=== PATIENT | male | born 1955 | race African-American/Black ===

== ENCOUNTER 2016-12-14 08:34 | Inpatient (IN) | payer BC, OTHER ==
[2016-12-14] MEDS ORDERED: ASPIRIN 81 MG TABLET, CHEWABLE PO ONE (08:55)
[2016-12-14] MEDS ORDERED: FUROSEMIDE INJ/PF 40 MG/4 ML SDV IV ONE (08:55)
--- NOTE | 2016-12-14 09:02 | ER Document Report ---
ED General - General Chief Complaint: Swelling Stated Complaint: LEG SWELLING Time Seen by Provider: 12/14/16 08:55 Mode of Arrival: Ambulatory Information source: Patient Notes: 61-year-old male who is supposed be on metoprolol but has not been taking his medication for approximately 1 month presents with complaints of shortness of breath swelling in his extremities. Patient is noted to be hypertensive on arrival 250/148 with pitting edema of the lower extremities testicles and swelling of the abdomen with shortness of breath. Patient notes symptoms started over the past 2-3 days TRAVEL OUTSIDE OF THE [place] IN LAST 30 DAYS: No - HPI Onset: Other - 2-3 days Onset/Duration: Persistent, Worse Quality of pain: No pain Severity: Severe Pain Level: Denies Associated symptoms: Leg swelling, Shortness of breath, Other Exacerbated by: Supine Relieved by: Denies Similar symptoms previously: No Recently seen / treated by doctor: No - Related Data Allergies/Adverse Reactions: No Known Allergies Allergy (Unverified 12/14/16 08:42) Home Medications: Current Home Medications Aspirin 81 mg PO DAILY 12/14/16 [History] Naproxen Sodium [Aleve] 220 mg PO PRN PRN 12/14/16 [History] Past Medical History - Social History Smoking Status: Never Smoker Cigarette use (# per day): No Chew tobacco use (# tins/day): No Smoking Education Provided: No Family History: Reviewed & Not Pertinent Renal/ Medical History: Denies: Hx Peritoneal Dialysis Review of Systems - Review of Systems Notes: REVIEW OF SYSTEMS: CONSTITUTIONAL : Denies fever, chills, or sweats. Denies recent illness. EENT: Denies eye, ear, throat, or mouth pain or symptoms. Denies nasal or sinus congestion or discharge. Denies throat, tongue, or mouth swelling or difficulty swallowing. CARDIOVASCULAR: Denies chest pain. Denies palpitations or racing or irregular heart beat. Denies ankle edema. RESPIRATORY: Admits to shortness of breath GASTROINTESTINAL: Denies abdominal pain or distention. Denies nausea, vomiting , or diarrhea. Denies blood in vomitus, stools, or per rectum. Denies black, tarry stools. Denies constipation. GENITOURINARY: Denies difficulty urinating, painful urination, burning, frequency, blood in urine, or discharge. MUSCULOSKELETAL: Admits to swelling of extremities SKIN: Denies rash, lesions or sores. HEMATOLOGIC : Denies easy bruising or bleeding. LYMPHATIC: Denies swollen, enlarged glands. NEUROLOGICAL: Denies confusion or altered mental status. Denies passing out or loss of consciousness. Denies dizziness or lightheadedness. Denies headache. Denies weakness or paralysis or loss of use of either side. Denies problems with gait or speech. Denies sensory loss, numbness, or tingling. Denies seizures. PSYCHIATRIC: Denies anxiety or stress. Denies depression, suicidal ideation, or homicidal ideation. ALL OTHER SYSTEMS REVIEWED AND NEGATIVE. Dictation was performed using [email or web address] voice recognition software PHYSICAL EXAMINATION: GENERAL: Overall edematous appearing male HEAD: Atraumatic, normocephalic. EYES: Pupils equal round and reactive to light, extraocular movements intact, sclera anicteric, conjunctiva are normal. ENT: Nares patent, oropharynx clear without exudates. Moist mucous membranes. NECK: Normal range of motion, supple without lymphadenopathy LUNGS: Rhonchi with wheezing all throughout HEART: Regular rate and rhythm without murmurs ABDOMEN: Mildly distended abdomen scrotum is quite edematous Musculoskeletal: +3 pitting edema bilateral lower extremities NEUROLOGICAL: Cranial nerves grossly intact. Normal speech, normal gait. Normal sensory, motor exams PSYCH: Normal mood, normal affect. SKIN: Edematous Physical Exam - Vital signs Vitals: Temp Pulse Resp BP Pulse Ox 97.7 F 117 H 20 250/148 H 97 12/14/16 08:44 12/14/16 08:44 12/14/16 08:44 12/14/16 08:44 12/14/16 08:44 Course - Re-evaluation Re-evalutation: 12/14/16 09:02 Patient is having probable CHF exacerbation, versus new onset CHF. Lasix has been ordered lab work imaging pending at this time 12/14/16 10:09 After Lasix was given patient had output of 400 cc states he is breathing much better, I did speak with the hospitalist noted at the pressure is now 213/100, he requests a nitroglycerin drip and will admit to the ICU - Vital Signs Vital signs: Temp Pulse Resp BP Pulse Ox 97.7 F 117 H 20 240/134 H 99 12/14/16 08:44 12/14/16 08:44 12/14/16 09:22 07/30/17 09:01 12/14/16 09:01 - Laboratory Result Diagrams: 12/14/16 09:08 12/14/16 09:08 Laboratory results interpreted by me: 12/14/16 12/14/16 12/14/16 09:08 09:08 09:08 RDW 17.4 H Lymphocytes % 7.8 L BUN 29 H Creatinine 1.30 H Est GFR (Non-Af Amer) 56 L Glucose 148 H Total Bilirubin 1.6 H Direct Bilirubin 1.2 H Alkaline Phosphatase 224 H NT-Pro-B Natriuret Pep [id number] H - Diagnostic Test Radiology reviewed: Image reviewed, Reports reviewed - EKG Interpretation by Me EKG shows normal: Sinus rhythm, [place], Intervals, QRS Complexes Voltage: Consistant with LVH Critical Care Note - Critical Care Note Total time excluding time spent on procedures (mins): 40 Comments: minutes of critical care time spent in direct contact evaluating and reevaluating the patient, treating symptoms, reviewing labs and studies and speaking with family and consultants excluding any procedures Discharge - Discharge Clinical Impression: Hypertensive emergency, Peripheral edema Congestive heart failure Qualifiers: Congestive heart failure type: combined Congestive heart failure chronicity: acute Qualified Code(s): I50.41 - Acute combined systolic (congestive) and diastolic (congestive) heart failure Condition: Serious Disposition: ADMITTED INPATIENT Admitting Provider: Hospitalist Unit Admitted: ICU
[2016-12-14 09:33] LABS: ABSOLUTE BASOPHILS # (AUTO) 0.1 10^3/uL (0.0-0.2); ABSOLUTE EOSINOPHILS # (AUTO) 0.1 10^3/uL (0.0-0.6); ABSOLUTE LYMPHOCYTES (AUTO) 0.6 10^3/uL (0.5-4.7); ABSOLUTE MONOCYTES (AUTO) 0.9 10^3/uL (0.1-1.4); ABSOLUTE NEUT (AUTO) 5.7 10^3/uL (1.7-8.2); BASOPHILS % (AUTO) 0.8 % (0-2); HEMATOCRIT 41.5 % (37.9-51.0); HEMOGLOBIN 13.8 g/dL (13.5-17.0); HGB HCT DIFFERENCE -0.1; LYMPHOCYTES % (AUTO) 7.8 % (13-45); MEAN CORPUSCULAR HEMOGLOBIN 29.5 pg (27.0-33.4); MEAN CORPUSCULAR HGB CONC 33.3 g/dL (32.0-36.0); MEAN CORPUSCULAR VOLUME 89 fl (80-97); MONOCYTES % (AUTO) 11.8 % (3-13); RED BLOOD COUNT 4.68 10^6/uL (4.35-5.55); RED CELL DISTRIBUTION WIDTH 17.4 % (11.5-14.0); SEGMENTED NEUTROPHILS % (AUTO) 77.6 % (42-78); WHITE BLOOD COUNT 7.4 10^3/uL (4.0-10.5)
[2016-12-14 09:36] LABS: ALANINE AMINOTRANSFERASE 48 U/L (21-72); ALBUMIN 3.8 g/dL (3.5-5.0); ALKALINE PHOSPHATASE 224 U/L (38-126); ANION GAP 13 (5-19); ASPARTATE AMINO TRANSFERASE 50 U/L (17-59); BILIRUBIN,DIRECT 1.2 mg/dL (0.0-0.4); BILIRUBIN,TOTAL 1.6 mg/dL (0.2-1.3); BLOOD UREA NITROGEN 29 mg/dL (7-20); CALCIUM 9.5 mg/dL (8.4-10.2); CARBON DIOXIDE 24 mmol/L (22-30); CHLORIDE 102 mmol/L (98-107); CREATINE KINASE 118 U/L (55-170); GLUCOSE 148 mg/dL (75-110); POTASSIUM 3.7 mmol/L (3.6-5.0); SODIUM 138.6 mmol/L (137-145); TOTAL PROTEIN 7.2 g/dL (6.3-8.2)
[2016-12-14 09:47] LABS: CREATINE KINASE MB 2.48 ng/mL (<4.55)
--- NOTE | 2016-12-14 09:47 | RADIOLOGY REPORT (SQ) ---
EXAM DESCRIPTION: CHEST SINGLE VIEW COMPLETED DATE/TIME: 12/14/2016 9:25 am REASON FOR STUDY: edema COMPARISON: None. EXAM PARAMETERS: NUMBER OF VIEWS: One view. TECHNIQUE: Single frontal radiographic view of the chest acquired. RADIATION DOSE: NA LIMITATIONS: None. FINDINGS: LUNGS AND PLEURA: Patchy subsegmental airspace disease in the lower lungs. MEDIASTINUM AND HILAR STRUCTURES: No masses. HEART AND VASCULAR STRUCTURES: Cardiomegaly. Pulmonary vascular redistribution. BONES: No acute findings. HARDWARE: None in the chest. OTHER: No other significant finding. IMPRESSION: Congestive heart failure. TECHNICAL DOCUMENTATION: JOB ID: [id number]
[2016-12-14 09:52] LABS: TROPONIN I 0.049 ng/mL
[2016-12-14 10:06] LABS: VENOUS BLOOD BASE EXCESS 0.8 mmol/L; VENOUS BLOOD HCO3 26.4 mmol/L (20-32); VENOUS BLOOD PCO2 45.5 mmHg (35-63); VENOUS BLOOD PH 7.38 (7.30-7.42)
[2016-12-14] MEDS ORDERED: NITROGLYCERIN/D5W 250 ML IV PRN ×2 (10:09→10:52)
[2016-12-14] MEDS ORDERED: MAGNESIUM HYDROXIDE SUSP 30 ML UDCUP PO PRN (10:58)
[2016-12-14] MEDS ORDERED: ONDANSETRON HCL INJ/PF 4 MG/2 ML SDV IV PRN (10:58)
[2016-12-14] MEDS ORDERED: ACETAMINOPHEN 325 MG TABLET PO PRN (10:58)
[2016-12-14] MEDS ORDERED: LORAZEPAM INJ 2 MG/1 ML VIAL IV PRN (11:03)
--- NOTE | 2016-12-14 11:10 | EKG REPORT ---
SEVERITY:- ABNORMAL ECG - SINUS TACHYCARDIA PROBABLE LEFT ATRIAL ABNORMALITY PROBABLE LVH WITH SECONDARY REPOL ABNRM : Confirmed by: Sana Do MD 14-Dec-2016 11:09:48
[2016-12-14] MEDS ORDERED: AMLODIPINE BESYLATE 10 MG TABLET PO ONE (11:13)
[2016-12-14 11:17] LABS: PROTHROMBIN TIME 15.4 SEC (11.4-15.4)
[2016-12-14 11:18] LABS: PARTIAL THROMBOPLASTIN TIME 38.9 SEC (23.5-35.8)
[2016-12-14] MEDS ORDERED: DEXTROSE 50%-WATER 25 GM/50 ML DISP.SYRIN IV PRN ×2 (11:30)
[2016-12-14] MEDS ORDERED: GLUCAGON,HUMAN RECOMB 1 MG INJ IM PRN (11:30)
[2016-12-14] MEDS ORDERED: DEXTROSE 40% GEL 15 GM TUBE PO PRN ×2 (11:30)
--- NOTE | 2016-12-14 11:33 | PDOC H&P ---
History of Present Illness Admission Date/PCP: 12/14/16 10:24 RADHA LERMA MD Patient complains of: SWELLING AND SOA History of Present Illness: CHRISTIANO DOSHI is a 61 year old male presents from home at the insistence of his family for progressive swelling of his legs, worsening exertional dyspena, weight gain, orthopnea of >3pillows sleeping upright in recliner, abdominal bloating, cough with clear phlegm and exertional wheezing. He stopped going to the [facility] over a year ago, doesn't like them, nothing personal. 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 He denies chest pain, palpitations, n/v /d, PND, fevers/chills, recent travel, calf pain or symptoms of claudication. He notes weight gain of unknown amount and his shoes don't fit anymore due to the swelling. To his knowledge he's never had AMI, CHF, cardiac stress test or cath and isn't diabetic or have COPD in spite of at least 1/2 ppd for >30yrs but freely admits he doesn't go to the doctor for fear of these diagnoses. He admits to 1-2 beers daily but family pulled me aside to note at least 3-4 on weekdays and more on the weekend though they confirm no prior hx of withdrawal, seizures or treatment/rehab. eval in ED shows he is in mauro heart failure with markedly elevated BPs warranting inpatient ICU treatment and further evaluation. Past Medical History Cardiac Medical History: Reports: Hypertension Denies: Congestive Heart Failure, Myocardial Infarction Pulmonary Medical History: Reports: Chronic Obstructive Pulmonary Disease (COPD) Endocrine Medical History: Reports: None Renal/ Medical History: Reports: None GI Medical History: Reports: None Psychiatric Medical History: Denies: Alcohol Dependency Past Surgical History Past Surgical History: Reports: Orthopedic Surgery - right knee meniscus repair 1973 Social History Information Source: Patient Smoking Status: Current Every Day Smoker Cigarettes Packs Per Day: 0.5 Frequency of Alcohol Use: Heavy Hx Recreational Drug Use: No Hx Prescription Drug Abuse: No - Advance Directive Resuscitation Status: Full Code Family History Family History: Reviewed & Not Pertinent, DM. denies: CAD, Malignancy, Thyroid Disfunction Parental Family History Reviewed: Yes Children Family History Reviewed: Yes Sibling(s) Family History Reviewed.: Yes Medication/Allergy Home Medications: Aspirin 81 mg PO DAILY 12/14/16 Naproxen Sodium [Aleve] 220 mg PO PRN PRN 12/14/16 Allergies/Adverse Reactions: No Known Allergies Allergy (Unverified 12/14/16 08:42) Review of Systems All systems: reviewed and no additional remarkable complaints except as stated - all systems reviewed, see HPI, remaining systems negative Physical Exam Vital Signs: Temp Pulse Resp BP Pulse Ox 97.7 F 117 H 18 212/156 H 97 12/14/16 08:44 12/14/16 08:44 12/14/16 10:47 12/14/16 10:47 12/14/16 10:47 General appearance: PRESENT: no acute distress, obese, well-developed, well- nourished Head exam: PRESENT: atraumatic, normocephalic Eye exam: PRESENT: conjunctival injection, EOMI, PERRLA. ABSENT: nystagmus, scleral icterus Mouth exam: PRESENT: moist, neck supple Teeth exam: PRESENT: poor dentation Neck exam: PRESENT: full ROM, JVD - to angle of the jaw. ABSENT: carotid bruit , lymphadenopathy, meningismus, tenderness, thyromegaly Respiratory exam: PRESENT: crackles, rales, unlabored, wheezes - faint end exp with pops and squeaks. ABSENT: accessory muscle use Cardiovascular exam: PRESENT: RRR. ABSENT: diastolic murmur, systolic murmur Pulses: PRESENT: normal radial pulses, normal dorsalis pedis pul GI/Abdominal exam: PRESENT: distended, normal bowel sounds, soft. ABSENT: ascites - shifting dullness -no, guarding, organolmegaly - no tenderness over the liver edge on palpation up under the ribs, tenderness Gentrourinary exam: PRESENT: scrotal swelling, indwelling catheter - large volume clear light yellow urine Extremities exam: PRESENT: full ROM, +2 edema. ABSENT: calf tenderness, clubbing Musculoskeletal exam: PRESENT: ambulatory, full ROM Neurological exam: PRESENT: alert, awake, oriented to person, oriented to place , oriented to time, oriented to situation Psychiatric exam: PRESENT: appropriate affect, normal mood. ABSENT: homicidal ideation, suicidal ideation Focused psych exam: ABSENT: pressured speech, psychomotor agitation Skin exam: PRESENT: warm - moist. ABSENT: rash Results Laboratory Results: 12/14/16 09:08 12/14/16 09:08 MCV 89 fl (80-97) 12/14/16 09:08 MCH 29.5 pg (27.0-33.4) 12/14/16 09:08 MCHC 33.3 g/dL (32.0-36.0) 12/14/16 09:08 RDW 17.4 % (11.5-14.0) H 12/14/16 09:08 Seg Neutrophils % 77.6 % (42-78) 12/14/16 09:08 Lymphocytes % 7.8 % (13-45) L 12/14/16 09:08 Monocytes % 11.8 % (3-13) 12/14/16 09:08 Eosinophils % 2.0 % (0-6) 12/14/16 09:08 Basophils % 0.8 % (0-2) 12/14/16 09:08 Absolute Neutrophils 5.7 10^3/uL (1.7-8.2) 12/14/16 09:08 Absolute Lymphocytes 0.6 10^3/uL (0.5-4.7) 12/14/16 09:08 Absolute Monocytes 0.9 10^3/uL (0.1-1.4) 12/14/16 09:08 Absolute Eosinophils 0.1 10^3/uL (0.0-0.6) 12/14/16 09:08 Absolute Basophils 0.1 10^3/uL (0.0-0.2) 12/14/16 09:08 VBG pH 7.38 (7.30-7.42) 12/14/16 09:53 VBG pCO2 45.5 mmHg (35-63) 12/14/16 09:53 VBG HCO3 26.4 mmol/L (20-32) 12/14/16 09:53 VBG Base Excess 0.8 mmol/L 12/14/16 09:53 Chloride 102 mmol/L (98-107) 12/14/16 09:08 Carbon Dioxide 24 mmol/L (22-30) 12/14/16 09:08 Anion Gap 13 (5-19) 12/14/16 09:08 Est GFR ( Amer) > 60 (>60) 12/14/16 09:08 Est GFR (Non-Af Amer) 56 (>60) L 12/14/16 09:08 Glucose 148 mg/dL (75-110) H 12/14/16 09:08 Calcium 9.5 mg/dL (8.4-10.2) 12/14/16 09:08 Magnesium 1.8 mg/dL (1.6-2.3) 12/14/16 09:08 Total Bilirubin 1.6 mg/dL (0.2-1.3) H 12/14/16 09:08 AST 50 U/L (17-59) 12/14/16 09:08 ALT 48 U/L (21-72) 12/14/16 09:08 Alkaline Phosphatase 224 U/L (38-126) H 12/14/16 09:08 Total Protein 7.2 g/dL (6.3-8.2) 12/14/16 09:08 Albumin 3.8 g/dL (3.5-5.0) 12/14/16 09:08 12/14/16 12/14/16 09:08 09:08 Creatine Kinase 118 CK-MB (CK-2) 2.48 Troponin I 0.049 NT-Pro-B Natriuret Pep 43354 H EKG Comments: ecg shows TWI I, III, aVL, V5-6 with 0.5mm depression in V5-6; QTc 475 no old for comparison Impressions: Chest X-Ray 12/14/16 08:55 IMPRESSION: Congestive heart failure. Status: Image reviewed by me - agree with rads Assessment & Plan - Diagnosis (1) Hypertensive emergency Is this a current diagnosis for this admission?: YesPlan: with end organ damage of renal failure and heart failure; admit to ICU for titration of nitro gtt to goal SBP <140 and DBP <95. he is chest pain free. start low dose toprol but hold ACEi for now due to elevated Scr and need for diuresis. empiric ASA therapy as primary prophylaxis. (2) Acute systolic CHF (congestive heart failure), NYHA class 4 Is this a current diagnosis for this admission?: YesPlan: working diagnosis on basis of clinical exam and symptoms, possibly diastolic. admit to ICU for diuresis and careful monitoring of his renal function. given his response to IV lasix 60mg of >2L already will back off to 20mg IV bid and adjust based on his response and renal function. empiric KCL and ck Mg - monitor and replace lytes. trend Florian. consult dr langley for his evaluation. Hold ACEi for now until we determine where his renal function stabilizes. beta latasha and statin and ASA as noted. fluid restrict, strict I/Os, daily weights (3) EtOH dependence Qualifiers: Substance use status: uncomplicated Qualified Code(s): F10.20 - Alcohol dependence, uncomplicated Is this a current diagnosis for this admission?: YesPlan: empiric Thiamine and monitor for w/d symptoms; start CIWA at first sign of trouble (4) Tobacco dependence Is this a current diagnosis for this admission?: YesPlan: no nicotine replacement while his BP is so poorly controlled. cessation counseling fell on "deaf ears". (5) Noncompliance with medication regimen Is this a current diagnosis for this admission?: YesPlan: likely to blame for his presentation and current state of affairs (6) Abnormal ECG Is this a current diagnosis for this admission?: YesPlan: await cardio input, trend Florian; at some point when his BP and heart failure controlled, will need ischemia evaluation (7) CKD (chronic kidney disease) stage 2, GFR 60-89 ml/min Is this a current diagnosis for this admission?: YesPlan: no old labs for comparison, unclear his baseline. ck UA and us abd for medico renal disease. hold nephrotoxic meds where possible and monitor Scr daily while diuresing. may need nephro consult prior to discharge. (8) Hyperglycemia Is this a current diagnosis for this admission?: YesPlan: family hx of DM, will ck A1c, add SSI for coverage (9) Liver function test abnormality Is this a current diagnosis for this admission?: YesPlan: unclear etiology, possibly vascular congestion from heart failure and renal disease but consumes enough ETOH to risk cirrhosis as well. trend LFTs and ck abd u/s for ascites and liver parenchymal abnl's - Time Time Spent: Greater than 70 Minutes Medications reviewed and adjusted accordingly: Yes Anticipated discharge: Home Within: within 72 hours - Inpatient Certification Based on my medical assessment, after consideration of the patient's comorbidities, presenting symptoms, or acuity I expect that the services needed warrant INPATIENT care.: Yes I certify that my determination is in accordance with my understanding of Medicare's requirements for reasonable and necessary INPATIENT services [42 CFR 412.3e].: Yes Medical Necessity: Significant Comorbidiites Make Outpatient Treatment Too Risky , Need Close Monitoring Due to Risk of Patient Decompensation, Need For Continuous Telemetry Monitoring, Risk of Complication if Not Cared For in Hospital
[2016-12-14] MEDS: NICARDIPINE HCL RTU, ISO-OS 200 ML IV PRN ×2 (12:06→13:31)
[2016-12-14] MEDS ORDERED: CARVEDILOL 6.25 MG TABLET ONE ×2 (12:12→16:10)
[2016-12-14] MEDS: THIAMINE HCL 100 MG TABLET PO SCH (12:15)
[2016-12-14 14:27] LABS: APPEARANCE,URINE CLEAR; BILIRUBIN,URINE NEGATIVE (NEGATIVE); GLUCOSE, URINE NEGATIVE (NEGATIVE); KETONES,URINE NEGATIVE (NEGATIVE); LEUKOCYTE ESTERASE,URINE NEGATIVE (NEGATIVE); NITRITE,URINE NEGATIVE (NEGATIVE); PROTEIN,URINE NEGATIVE (NEGATIVE); URINE SPECIFIC GRAVITY 1.004; UROBILINOGEN,URINE NEGATIVE mg/dL (<2.0)
[2016-12-14 15:46] LABS: CREATINE KINASE MB 1.67 ng/mL (<4.55); TROPONIN I 0.065 ng/mL
[2016-12-14] MEDS ORDERED: CARVEDILOL 6.25 MG TABLET PO ONE (16:00)
[2016-12-14] MEDS: INSULIN LISPRO 100 UNIT/ML 3 ML VIAL SUBCUT PRN (17:17)
--- NOTE | 2016-12-14 18:52 | PDOC CONSULTATION ---
Consultation Consult Date: 12/14/16 Attending physician:: HAFSA KELLER Consult reason:: Severe hypertension, CHF History of Present Illness Admission Date/PCP: 12/14/16 10:52 RADHA LERMA MD Patient complains of: Shortness of breath History of Present Illness: CHRISTIANO DOSHI is a 61 year old male presents from home at the insistence of his family for progressive swelling of his legs, worsening exertional dyspena, weight gain, orthopnea of >3pillows sleeping upright in recliner, abdominal bloating, cough with clear phlegm and exertional wheezing. He stopped going to the MD over a year ago, doesn't like them, nothing personal. 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 He denies chest pain, palpitations, n/v /d, PND, fevers/chills, recent travel, calf pain or symptoms of claudication. He notes weight gain of unknown amount and his shoes don't fit anymore due to the swelling. To his knowledge he's never had AMI, CHF, cardiac stress test or cath and isn't diabetic or have COPD in spite of at least 1/2 ppd for >30yrs but freely admits he doesn't go to the doctor for fear of these diagnoses. He admits to 1-2 beers daily Evaluation in ED shows he is in mauro heart failure with markedly elevated BPs warranting inpatient ICU treatment and further evaluation. I was asked to see the patient because of severe hypertension. Patient was initially started on nicardipine drip. He was also started on carvedilol. Will also recommend hydralazine nitrate combination. Past Medical History Cardiac Medical History: Reports: Hypertension Denies: Congestive Heart Failure, Myocardial Infarction Pulmonary Medical History: Reports: Chronic Obstructive Pulmonary Disease (COPD) Endocrine Medical History: Reports: None Renal/ Medical History: Reports: None GI Medical History: Reports: None Psychiatric Medical History: Denies: Alcohol Dependency Past Surgical History Past Surgical History: Reports: Orthopedic Surgery - right knee meniscus repair 1974 Social History Information Source: Patient Smoking Status: Current Every Day Smoker Cigarettes Packs Per Day: 1 Number of Years Smokin Last Time Smoked: 12/13/16 Frequency of Alcohol Use: Social Hx Recreational Drug Use: No Drugs: None Hx Prescription Drug Abuse: No - Advance Directive Resuscitation Status: Full Code Surrogate healthcare decision maker:: Patient's is the surrogate decision-maker Family History Family History: COPD, DM, Hypertension. denies: CAD, Malignancy, Thyroid Disfunction Parental Family History Reviewed: Yes Children Family History Reviewed: Yes Sibling(s) Family History Reviewed.: Yes Medication/Allergy Home Medications: Aspirin 81 mg PO DAILY 12/14/16 Naproxen Sodium [Aleve] 220 mg PO PRN PRN 12/14/16 Allergies/Adverse Reactions: No Known Allergies Allergy (Unverified 12/14/16 08:42) Review of Systems Review of Systems: Please see history of present illness and past medical history as wall. Constitutional: No fever or chills reported. Recent fatigue and tiredness as well as progressive pedal edema. Head : No recent chronic headaches, recent head injury. Eyes: No recent eye pain, diplopia, redness, discharge, acute visual changes. Ears: No recent chronic ear pain, acute hearing loss, ear discharge. Oral cavity: No recent ulcerations, bleeding, oral cavity discomfort. Neck: No recent acute neck pain reported. Hematologic: No recent easy bruising or bleeding or hematologic malignancy reported. Lymphatic: No recent lymphatic malignancy, chronic lymphadenopathy reported yet Cardiovascular system review: See history of present illness. Respiratory system review: No recent chronic cough, hemoptysis, blood clots in the lungs reported. Progressive shortness of breath on exertion Gastrointestinal system review: Negative for any recent acute or chronic abdominal pain, hematemesis, melena, recent change in bowel habits. Genitourinary system review: No recent acute or chronic hematuria, flank pain, UTI etc. reported. Skin system review: Negative for any recent abnormal bruising, no rash, no pruritus reported. Neurologic: No prior history of strokes, mini strokes, seizure disorder. Psychologic: No history of major psychosis or major depression reported. Musculoskeletal: Minor aches and pains reported. No acute joint swelling reported. Endocrine: No recent polyuria, polydipsia, recent heat or cold intolerance. Physical Exam Vital Signs: Temp Pulse Resp BP Pulse Ox 98.3 F 104 H 22 H 182/80 H 100 12/14/16 11:40 12/14/16 11:40 12/14/16 12:32 12/14/16 12:32 12/14/16 11:40 Intake & Output 12/13/16 12/14/16 12/15/16 06:59 06:59 06:59 Output Total 975 Balance -975 Weight 95.1 kg Exam: GENERAL: well-nourished and in no acute distress. Alert and oriented x3 HEAD: Atraumatic, normocephalic. EYES: Pupils equal round and reactive to light, extraocular movements intact, sclera anicteric, conjunctiva are normal. ENT: TMs normal, nares patent, oropharynx clear without exudates. Moist mucous membranes. No oral ulcerations or bleeding gums noted NECK: supple without lymphadenopathy. Trachea is central. No cervical or axillary lymphadenopathy noted. Carotids are 2+, JVD 14 cm LUNGS: Respiration seems nonlabored, no significant accessory muscle action noted. Bibasilar fine crackles and bilateral mild dullness noted at bases. CHEST: Palpation of the chest wall shows no significant chest wall tenderness. No other significant abnormalities noted. 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 ABDOMEN: Soft, no significant tenderness appreciated, normoactive bowel sounds. No guarding, no rebound. No rigidity noted . No masses appreciated. EXTREMITIES: Pedal pulses are 1-2+, no calf tenderness noted. No clubbing or cyanosis. 2-3 + pedal edema noted NEUROLOGICAL: Focused neurological exam showed no significant neurologic deficit. Normal speech, no focal weakness appreciated. PSYCH: Normal mood, normal affect. Judgment and insight within normal limits. SKIN: No significant ecchymosis, rash, ulcerations or signs of pruritus noted. MUSCULOSKELETAL EXAM: No significant joint swelling noted. Results EKG Comments: Sinus tachycardia with LVH and secondary ST-T wave changes noted Impressions: Chest X-Ray 12/14/16 08:55 IMPRESSION: Congestive heart failure. Status: Image reviewed by nv - Chest x-ray showed cardiomegaly and pulmonary vascular pattern consistent with CHF Assessment & Plan - Diagnosis (1) Congestive heart failure Qualifiers: Congestive heart failure type: unspecified congestive heart failure type Congestive heart failure chronicity: acute Qualified Code(s): I50.9 - Heart failure, unspecified Is this a current diagnosis for this admission?: Yes (2) EtOH dependence Qualifiers: Substance use status: uncomplicated Qualified Code(s): F10.20 - Alcohol dependence, uncomplicated Is this a current diagnosis for this admission?: Yes (3) Hypertensive emergency Is this a current diagnosis for this admission?: Yes (4) Peripheral edema Is this a current diagnosis for this admission?: Yes (5) Tobacco dependence Is this a current diagnosis for this admission?: Yes - Notes Notes: Congestive heart failure: Acute on chronic. Exact etiology not clear but could well be systolic and diastolic dysfunction, diastolic dysfunction etc. Possibly on the basis of hypertensive heart disease. Continue with IV diuretic therapy. Good control of blood pressure is being recommended with goal of 135/ 85. Continue with salt and fluid restriction. Hypertensive emergency: Currently blood pressure seems to be under better control. Continue with beta-latasha, TATUM/ARB/entresto therapy if LV systolic dysfunction is noted. Blood pressure goal is 135/85 or less. Pedal edema patient noted to have significant pedal edema. Probably related to chronic CHF. Alcohol dependence: Patient does drink 4 or more beers a day. Watch for withdrawal. Tobacco dependence: Patient has been advised to quit smoking. Continue with nicotine patch. - Time Time Spent: 50 to 70 Minutes - CODE STATUS was discussed, patient remains full code. Surrogate decision-maker patient's . Multiple medical problems were addressed. More than 50% of the time spent coordinating care, discussing management plans with involved caregivers. Management plans discussed with involved personnels. Medical decision making was of moderate to high complexity , patient's has multiple comorbidities. Medications reviewed and adjusted accordingly: Yes
[2016-12-14] MEDS: POTASSIUM CHLORIDE 10 MEQ TABLET.SA PO SCH (21:18)
[2016-12-14] MEDS: FUROSEMIDE INJ/PF 20 MG/2 ML SDV IV SCH (21:18)
[2016-12-14] MEDS: FAMOTIDINE 20 MG TABLET PO SCH (21:19)
[2016-12-14 22:00] LABS: CREATINE KINASE MB 1.45 ng/mL (<4.55); TROPONIN I 0.052 ng/mL
[2016-12-14] MEDS ORDERED: METOPROLOL TARTRATE 25 MG TABLET PO SCH (22:00)
[2016-12-14 22:52] LABS: ANION GAP 8 (5-19); BLOOD UREA NITROGEN 31 mg/dL (7-20); CALCIUM 9.2 mg/dL (8.4-10.2); CARBON DIOXIDE 31 mmol/L (22-30); CHLORIDE 98 mmol/L (98-107); CREATININE RESULT 1.35 mg/dL (0.52-1.25); GLUCOSE 106 mg/dL (75-110); POTASSIUM 4.3 mmol/L (3.6-5.0)
[2016-12-15] MEDS: NICARDIPINE HCL RTU, ISO-OS 200 ML IV PRN (03:39)
[2016-12-15 05:49] LABS: ALANINE AMINOTRANSFERASE 42 U/L (21-72); ALBUMIN 3.7 g/dL (3.5-5.0); ALKALINE PHOSPHATASE 191 U/L (38-126); ANION GAP 10 (5-19); ASPARTATE AMINO TRANSFERASE 45 U/L (17-59); BILIRUBIN,DIRECT 1.2 mg/dL (0.0-0.4); BILIRUBIN,TOTAL 2.2 mg/dL (0.2-1.3); BLOOD UREA NITROGEN 25 mg/dL (7-20); CALCIUM 9.2 mg/dL (8.4-10.2); CARBON DIOXIDE 31 mmol/L (22-30); CHLORIDE 96 mmol/L (98-107); CHOLESTEROL 148.06 mg/dL (0-200); CREATININE RESULT 1.12 mg/dL (0.52-1.25); Direct HDL 54 mg/dL (>40); GLUCOSE 125 mg/dL (75-110); MAGNESIUM 1.5 mg/dL (1.6-2.3); POTASSIUM 3.4 mmol/L (3.6-5.0); SODIUM 136.6 mmol/L (137-145); TOTAL PROTEIN 7.1 g/dL (6.3-8.2); TRIGLYCERIDES 75 mg/dL (<150)
[2016-12-15 06:00] LABS: DIRECT LDL 84 mg/dL (<100); TROPONIN I 0.066 ng/mL
--- NOTE | 2016-12-15 07:16 | RADIOLOGY REPORT (SQ) ---
EXAM DESCRIPTION: U/S ABDOMEN LIMITED W/O DOP COMPLETED DATE/TIME: 12/15/2016 6:36 am REASON FOR STUDY: ASCITES COMPARISON: None. TECHNIQUE: Dynamic and static grayscale images acquired of the abdomen and recorded on PACS. Additio nal selected color Doppler and spectral images recorded. LIMITATIONS: None. FINDINGS: PANCREAS: No masses. Visualized pancreatic duct normal caliber. LIVER: No masses. Mild hepatic steatosis. LIVER VASCULATURE: Normal directional flow of the main portal vein and hepatic veins. GALLBLADDER: No stones. Nondistended gallbladder with gallbladder wall thickness measuring 0.5 cm. No pericholecystic fluid. ULTRASOUND-DETECTED MIRELES'S SIGN: Negative. INTRAHEPATIC DUCTS AND COMMON DUCT: CBD and intrahepatic ducts normal caliber. No filling defects. INFERIOR VENA CAVA: Normal flow. AORTA: Partially obscured. RIGHT KIDNEY: Normal size. Normal echogenicity. No solid or suspicious masses. No hydronephrosis. No calcifications. PERITONEAL AND RIGHT PLEURAL SPACE: Small ascites of the right upper and right lower quadrants of the abdomen. OTHER: No other significant findings. IMPRESSION: Small ascites. Mild hepatic steatosis. TECHNICAL DOCUMENTATION: JOB ID: [id number] [employer]- All Rights Reserved
[2016-12-15] MEDS ORDERED: ASPIRIN 81 MG TABLET, ENT COATED PO SCH (10:00)
[2016-12-15] MEDS ORDERED: ASPIRIN 81 MG TABLET, CHEWABLE PO SCH (10:00)
[2016-12-15] MEDS ORDERED: ASPIRIN 81 MG TABLET, CHEWABLE PO ONE (10:15)
--- NOTE | 2016-12-15 11:37 | PDOC PROGRESS REPORT ---
Subjective Progress Note for:: 12/15/16 Subjective:: reason for visit: f/u acute heart failure, HTN emergency, noncompliance hospital course: CHRISTIANO DOSHI is a 61 year old male presents from home at the insistence of his family for progressive swelling of his legs, worsening exertional dyspena, weight gain, orthopnea of >3pillows sleeping upright in recliner, abdominal bloating, cough with clear phlegm and exertional wheezing. He stopped going to the MD over a year ago, doesn't like them, nothing personal. 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 He denies chest pain, palpitations, n/v/d, PND, fevers/chills, recent travel, calf pain or symptoms of claudication. He notes weight gain of unknown amount and his shoes don't fit anymore due to the swelling. To his knowledge he's never had AMI, CHF, cardiac stress test or cath and isn't diabetic or have COPD in spite of at least 1/2 ppd for >30yrs but freely admits he doesn't go to the doctor for fear of these diagnoses. He admits to 1-2 beers daily but family pulled me aside to note at least 3-4 on weekdays and more on the weekend though they confirm no prior hx of withdrawal, seizures or treatment/rehab. eval in ED shows he is in mauro heart failure with markedly elevated BPs warranting inpatient ICU treatment and further evaluation. he was admitted to ICU initially on NTG gtt without adequate response so changed to cardene gtt with much better control of his BP. He has diuresed 10L since admission with only minimal IV lasix. U/S of abdomen shows only mild hepatosteatosis and ascites. ROS: he denies chest pain, palpitations, n/v/d, abdominal pain, SORENSON, agitation, "shakes" or tremors, anxiety. all systems reviewed, see above, remaining systems negative. Physical Exam Vital Signs: Temp Pulse Resp BP Pulse Ox 98.5 F 95 15 148/81 H 98 12/15/16 10:00 12/15/16 10:00 12/15/16 10:00 12/15/16 10:00 12/15/16 10:00 Intake & Output 12/14/16 12/15/16 12/16/16 06:59 06:59 06:59 Intake Total 1994 360 Output Total 95415 1180 Balance -8030 -820 Weight 89.2 kg General appearance: PRESENT: no acute distress, obese, well-developed, well- nourished Head exam: PRESENT: atraumatic, normocephalic Eye exam: PRESENT: conjunctival injection, EOMI, PERRLA. ABSENT: nystagmus, scleral icterus Mouth exam: PRESENT: moist, neck supple Teeth exam: PRESENT: poor dentation Neck exam: PRESENT: full ROM, JVD - to angle of the jaw. ABSENT: carotid bruit , lymphadenopathy Respiratory exam: PRESENT: crackles, rales, unlabored, no wheezes ABSENT: accessory muscle use Cardiovascular exam: PRESENT: RRR. ABSENT: diastolic murmur, systolic murmur Pulses: PRESENT: normal radial pulses, normal dorsalis pedis pul GI/Abdominal exam: PRESENT: distended, normal bowel sounds, soft. ABSENT: no shifting dullness -no, guarding, organolmegaly - no tenderness over the liver edge on palpation up under the ribs, tenderness Gentrourinary exam: PRESENT: improved scrotal swelling, indwelling catheter - large volume clear light yellow urine Extremities exam: PRESENT: full ROM, +1 edema. ABSENT: calf tenderness, clubbing Musculoskeletal exam: PRESENT: ambulatory, full ROM Neurological exam: PRESENT: alert, awake, oriented to person, oriented to place , oriented to time, oriented to situation; Rt eye ptosis and Rt facial droop most notable nasolabial fold and corner of his mouth Psychiatric exam: PRESENT: appropriate affect, normal mood. ABSENT: homicidal ideation, suicidal ideation Focused psych exam: ABSENT: pressured speech, psychomotor agitation Skin exam: PRESENT: warm - moist. ABSENT: rash Results Laboratory Results: 12/15/16 04:50 12/14/16 12/15/16 21:02 04:50 Sodium 137.0 136.6 L Potassium 4.3 3.4 L Chloride 98 96 L Carbon Dioxide 31 H 31 H Anion Gap 8 10 BUN 31 H 25 H Creatinine 1.35 H 1.12 Est GFR ( Amer) > 60 > 60 Est GFR (Non-Af Amer) 54 L > 60 Glucose 106 125 H Calcium 9.2 9.2 Magnesium 1.5 L Total Bilirubin 2.2 H AST 45 ALT 42 Alkaline Phosphatase 191 H Total Protein 7.1 Albumin 3.7 Triglycerides 75 Cholesterol 148.06 LDL Cholesterol Direct 84 VLDL Cholesterol 15.0 HDL Cholesterol 54 12/14/16 12/14/16 12/14/16 14:03 15:10 15:10 Creatine Kinase 90 CK-MB (CK-2) 1.67 Troponin I 0.059 0.065 NT-Pro-B Natriuret Pep 12/14/16 12/14/16 12/15/16 21:02 21:02 04:50 Creatine Kinase 85 CK-MB (CK-2) 1.45 Troponin I 0.052 0.066 NT-Pro-B Natriuret Pep 7440 H Impressions: Chest X-Ray 12/14/16 08:55 IMPRESSION: Congestive heart failure. Abdomen Ultrasound 12/15/16 00:00 IMPRESSION: Small ascites. Mild hepatic steatosis. Status: Imported from PACS Assessment & Plan - Diagnosis (1) Hypertensive emergency Is this a current diagnosis for this admission?: YesPlan: continue cardene gtt, coreg and add losartan, aldactone and imdur hoping to wean off gtt as tolerated. once BPs sustained at goal without the gtt he can transition to the floor. (2) Acute systolic CHF (congestive heart failure), NYHA class 4 Is this a current diagnosis for this admission?: YesPlan: awaiting echo results, continue diuresis, strict I/O's, daily weights, low salt diet, fluid restrict. at some point in future will likely need ischemia evaluation due to indeterminate troponins and risk factors. (3) EtOH dependence Qualifiers: Substance use status: uncomplicated Qualified Code(s): F10.20 - Alcohol dependence, uncomplicated Is this a current diagnosis for this admission?: YesPlan: continue thiamine and prn ativan, no signs of withdrawal or distress at present. (4) Tobacco dependence Is this a current diagnosis for this admission?: YesPlan: cessation counseling attempted but he is not interested at this time. recommend holding nicotine replacement due to HTN for now. (5) Noncompliance with medication regimen Is this a current diagnosis for this admission?: Yes (6) Abnormal ECG Is this a current diagnosis for this admission?: YesPlan: await cardio input, trend Florian; at some point when his BP and heart failure controlled, will need ischemia evaluation (7) CKD (chronic kidney disease) stage 2, GFR 60-89 ml/min Is this a current diagnosis for this admission?: YesPlan: actually improved with diuresis allowing initiation of ARB; continue to monitor (8) Hyperglycemia Is this a current diagnosis for this admission?: YesPlan: family hx of DM, A1c = 6.9 meeting criteria for new onset DM, add SSI for coverage, diabetic education and counseling psychologist regarding diet/lifestyle changes before initiating Rx treatment. will need PCP to follow as outpt if he will comply (9) Liver function test abnormality Is this a current diagnosis for this admission?: YesPlan: about the same and likely from vascular congestion due to above with a component of steatosis and chronic ETOH exposure as well. (10) Max palsy Is this a current diagnosis for this admission?: YesPlan: POA with asymmetric face - Time Time Spent with patient: 35 or more minutes Medications reviewed and adjusted accordingly: Yes Anticipated discharge: Home Within: within 72 hours
[2016-12-15] MEDS: FAMOTIDINE 20 MG TABLET PO SCH ×2 (11:47→21:12)
[2016-12-15] MEDS: CARVEDILOL 12.5 MG TABLET PO SCH ×2 (11:48→21:12)
[2016-12-15] MEDS: SPIRONOLACTONE 25 MG TABLET PO SCH (11:48)
[2016-12-15] MEDS: LOSARTAN POTASSIUM 50 MG TABLET PO SCH (11:49)
[2016-12-15] MEDS: POTASSIUM CHLORIDE 10 MEQ TABLET.SA PO SCH ×2 (11:49→21:11)
[2016-12-15] MEDS: FUROSEMIDE INJ/PF 20 MG/2 ML SDV IV SCH ×2 (11:49→21:12)
[2016-12-15] MEDS: ISOSORBIDE MONONITRATE 60 MG TAB.ER.24H PO SCH (11:49)
[2016-12-15] MEDS: ENOXAPARIN SODIUM INJ 30 MG/0.3 ML DISP.SYRIN SUBCUT SCH (11:50)
[2016-12-15] MEDS: MAGNESIUM SULFATE/D5W 1 GM/100 ML RTUPB IV SCH ×2 (11:50→12:45)
[2016-12-15] MEDS: DOCUSATE SODIUM 100 MG CAPSULE PO SCH (11:51)
[2016-12-15] MEDS: THIAMINE HCL 100 MG TABLET PO SCH (12:44)
[2016-12-15] MEDS: INSULIN LISPRO 100 UNIT/ML 3 ML VIAL SUBCUT PRN (17:24)
[2016-12-16 05:58] LABS: ALANINE AMINOTRANSFERASE 32 U/L (21-72); ALBUMIN 3.3 g/dL (3.5-5.0); ALKALINE PHOSPHATASE 171 U/L (38-126); ANION GAP 10 (5-19); ASPARTATE AMINO TRANSFERASE 34 U/L (17-59); BILIRUBIN,TOTAL 1.8 mg/dL (0.2-1.3); BLOOD UREA NITROGEN 22 mg/dL (7-20); CALCIUM 8.8 mg/dL (8.4-10.2); CARBON DIOXIDE 31 mmol/L (22-30); CHLORIDE 93 mmol/L (98-107); CREATININE RESULT 1.03 mg/dL (0.52-1.25); GLUCOSE 117 mg/dL (75-110); MAGNESIUM 1.6 mg/dL (1.6-2.3); POTASSIUM 3.5 mmol/L (3.6-5.0); SODIUM 133.5 mmol/L (137-145); TOTAL PROTEIN 6.6 g/dL (6.3-8.2)
--- NOTE | 2016-12-16 09:15 | XCELERA REPORT ---
[address] [address] Transthoracic Echocardiogram Report Name: CHRISTIANO DOSHI Age: 61 yrs Gender: Male : 1955 Patient Status: Inpatient Patient Location: ICU\S\611\S\A Study Date: 12/15/2016 08:41 AM Height: 58 in Weight: 216 lb BSA: 1.9 m2 Procedure: A complete two-dimensional transthoracic echocardiogram was performed (2D, M-mode, spectral and color flow Doppler). The study was technically adequate with some images being suboptimal in quality. Reason For Study: NEW HEART FAILURE Ordering Physician: HAFSA KELLER Performed By: Shorty Trinidad Interpretation Summary Left ventricular systolic function is low normal. Doppler measurements suggest pseudonormalized left ventricular relaxation, which is associated with grade II/IV or mild to moderate diastolic dysfunction There is moderate concentric left ventricular hypertrophy. The left ventricle is grossly normal size. Wall motion cannot be accurately commented on, but no definite regional wall motion abnormalities noted. The right ventricle is mildly dilated. The right ventricle appears to be hypertrophied The right ventricular systolic function is normal. The right atrium is moderately dilated. The left atrium is mildly dilated. There is a trace to mild amount of mitral regurgitation There is no mitral valve stenosis. There is no aortic valve stenosis No aortic regurgitation is present. There is a mild to moderate amount of tricuspid regurgitation There is moderate pulmonary hypertension by echo Right ventricular systolic pressure is estimated to be elevated at 50- 60mmHg. The aortic root is not well visualized but is probably normal size. The inferior vena cava appeared dilated and decreased < 50% with respiration (RAP 15-20 mmHg) There is no pericardial effusion. MMode/2D Measurements \T\ Calculations RVDd: 3.2 cm LVIDd: 5.0 cm FS: 28.5 % Ao root diam: 3.1 cm IVSd: 1.6 cm LVIDs: 3.6 cm EDV(Teich): 118.8 ml LVPWd: 1.7 cm ESV(Teich): 53.7 ml Ao root area: 7.5 cm2 EF(Teich): 54.8 % LA dimension: 4.3 cm Doppler Measurements \T\ Calculations MV E max yesenia: MV P1/2t max yesenia: Ao V2 max: LV V1 max P.5 cm/sec 79.1 cm/sec 158.1 cm/sec 4.7 mmHg MV A max yesenia: MV P1/2t: 56.2 msec Ao max PG: LV V1 max: 45.1 cm/sec 10.0 mmHg 108.6 cm/sec MV E/A: 1.7 MVA(P1/2t): 3.9 cm2 MV dec slope: 411.7 cm/sec2 PA V2 max: PI end-d yesenia: TR max yesenia: RAP systole: 74.0 cm/sec 157.5 cm/sec 318.3 cm/sec 10.0 mmHg PA max PG: TR max P.2 mmHg 40.7 mmHg RVSP(TR): 50.7 mmHg Left Ventricle The left ventricle is grossly normal size. There is moderate concentric left ventricular hypertrophy. Left ventricular systolic function is low normal. Doppler measurements suggest pseudonormalized left ventricular relaxation, which is associated with grade II/IV or mild to moderate diastolic dysfunction. Wall motion cannot be accurately commented on, but no definite regional wall motion abnormalities noted. Right Ventricle The right ventricle is mildly dilated. The right ventricle appears to be hypertrophied. The right ventricular systolic function is normal. Atria The right atrium is moderately dilated. The left atrium is mildly dilated. Interarterial septum not well visualized and not well dopplered. Cannot comment on ASD/PFO presence. Mitral Valve The mitral valve is grossly normal. There is no mitral valve stenosis. There is a trace to mild amount of mitral regurgitation. Aortic Valve The aortic valve is mildly calcified. There is no aortic valve stenosis. No aortic regurgitation is present. Tricuspid Valve The tricuspid valve is not well visualized, but is grossly normal. There is no tricuspid stenosis. There is a mild to moderate amount of tricuspid regurgitation. There is moderate pulmonary hypertension by echo. Right ventricular systolic pressure is estimated to be elevated at 50-60mmHg. Pulmonic Valve The pulmonic valve is not well visualized. There is a mild amount of pulmonic regurgitation. Great Vessels The aortic root is not well visualized but is probably normal size. The inferior vena cava appeared dilated and decreased < 50% with respiration (RAP 15-20 mmHg). Effusions There is no pericardial effusion. : HAFSA KELLER > Melody Pacheco
[2016-12-16] MEDS: ENOXAPARIN SODIUM INJ 30 MG/0.3 ML DISP.SYRIN SUBCUT SCH (10:07)
[2016-12-16] MEDS: FUROSEMIDE INJ/PF 20 MG/2 ML SDV IV SCH ×2 (10:07→22:45)
[2016-12-16] MEDS: ISOSORBIDE MONONITRATE 60 MG TAB.ER.24H PO SCH (10:08)
[2016-12-16] MEDS: SPIRONOLACTONE 25 MG TABLET PO SCH (10:08)
[2016-12-16] MEDS: ASPIRIN 81 MG TABLET, CHEWABLE PO SCH (10:08)
[2016-12-16] MEDS: POTASSIUM CHLORIDE 10 MEQ TABLET.SA PO SCH ×2 (10:08→22:44)
[2016-12-16] MEDS: FAMOTIDINE 20 MG TABLET PO SCH ×2 (10:09→22:44)
[2016-12-16] MEDS: DOCUSATE SODIUM 100 MG CAPSULE PO SCH (10:09)
[2016-12-16] MEDS: CARVEDILOL 12.5 MG TABLET PO SCH ×2 (10:10→22:46)
[2016-12-16] MEDS: LOSARTAN POTASSIUM 50 MG TABLET PO SCH (10:10)
--- NOTE | 2016-12-16 10:11 | PDOC PROGRESS REPORT ---
Subjective Progress Note for:: 12/16/16 Subjective:: Patient seems to be doing better with significant improvement. Pt is denying any chest arm or neck discomfort. Patient denying any PND, orthopnea. Patient denied any sustained palpitations, dizziness, syncope, near syncope. Patient denying any fever chills. Patient denying any other significant discomfort. Blood pressure noted to be high today. Nuclear stress test procedure was explained to the patient in detail. Risks benefits were discussed and informed consent was obtained. Alternatives were discussed. Patient informed that based on risk factors, physical exam, lab data findings and symptoms there is at least intermediate probability of underlying CAD. Nuclear stress test procedure was therefore scheduled. 2D echo results were reviewed with the patient. Patient is maintaining sinus rhythm. Review of systems: Rest review of systems negative. Medications: Medications have been reviewed. Physical Exam Vital Signs: Temp Pulse Resp BP Pulse Ox 98.0 F 89 19 181/99 H 99 12/16/16 07:14 12/16/16 07:14 12/16/16 07:14 12/16/16 07:14 12/16/16 07:14 Pulse Oximeter Continuous Start: 12/14/16 10: 53 Freq: RTQ4 Status: Complete Document 12/14/16 12:00 LDA (Rec: 12/14/16 14:06 LDA [email or web address]) Pulse Oximetry Assessment Oxygen Saturation (92-100) 93 Oxygen Delivery Method Room Air Fraction of Inspired Oxygen (FIO2) 21 Equipment Usage Equipment Standby Continuous SpO2 Machine # 00 Intake & Output 12/15/16 12/16/16 12/17/16 06:59 06:59 06:59 Intake Total 1994 1737 Output Total 06704 2167 Balance -8030 -1202 Weight 89.2 kg Exam: GENERAL: well-nourished and in no acute distress. Alert and oriented x3 HEAD: Atraumatic, normocephalic. EYES: Pupils equal round and reactive to light, extraocular movements intact, sclera anicteric, conjunctiva are normal. ENT: TMs normal, nares patent, oropharynx clear without exudates. Moist mucous membranes. No oral ulcerations or bleeding gums noted NECK: supple without lymphadenopathy. Trachea is central. No cervical or axillary lymphadenopathy noted. Carotids are 2+, JVD 8-10 cm LUNGS: Respiration seems nonlabored, no significant accessory muscle action noted. Breath sounds clear to auscultation bilaterally and equal noted. No wheezes rales or rhonchi noted. No significant dullness noted on percussion. CHEST: Palpation of the chest wall shows no significant chest wall tenderness. No other significant abnormalities noted. 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 ABDOMEN: Soft, no significant tenderness appreciated, normoactive bowel sounds. No guarding, no rebound. No rigidity noted . No masses appreciated. EXTREMITIES: Pedal pulses are 1-2+, no calf tenderness noted. No clubbing or cyanosis. 1-2+ pedal edema noted NEUROLOGICAL: Focused neurological exam showed no significant neurologic deficit. Normal speech, no focal weakness appreciated. PSYCH: Normal mood, normal affect. Judgment and insight within normal limits. SKIN: No significant ecchymosis, rash, ulcerations or signs of pruritus noted. MUSCULOSKELETAL EXAM: No significant joint swelling noted. Results Laboratory Results: 12/16/16 04:30 12/16/16 04:30 Sodium 133.5 L Potassium 3.5 L Chloride 93 L Carbon Dioxide 31 H Anion Gap 10 BUN 22 H Creatinine 1.03 Est GFR ( Amer) > 60 Est GFR (Non-Af Amer) > 60 Glucose 117 H Calcium 8.8 Magnesium 1.6 Total Bilirubin 1.8 H AST 34 ALT 32 Alkaline Phosphatase 171 H Total Protein 6.6 Albumin 3.3 L 12/14/16 12/14/16 12/14/16 14:03 15:10 15:10 Creatine Kinase 90 CK-MB (CK-2) 1.67 Troponin I 0.059 0.065 NT-Pro-B Natriuret Pep 12/14/16 12/14/16 12/15/16 21:02 21:02 04:50 Creatine Kinase 85 CK-MB (CK-2) 1.45 Troponin I 0.052 0.066 NT-Pro-B Natriuret Pep 7440 H 12/16/16 04:30 Creatine Kinase CK-MB (CK-2) Troponin I NT-Pro-B Natriuret Pep 4080 H EKG Comments: Telemetry strips shows sinus rhythm. No tachycardia or bradycardia arrhythmia noted. Impressions: Chest X-Ray 12/14/16 08:55 IMPRESSION: Congestive heart failure. Abdomen Ultrasound 12/15/16 00:00 IMPRESSION: Small ascites. Mild hepatic steatosis. Assessment & Plan - Diagnosis (1) Congestive heart failure Qualifiers: Congestive heart failure type: unspecified congestive heart failure type Congestive heart failure chronicity: acute Qualified Code(s): I50.9 - Heart failure, unspecified Is this a current diagnosis for this admission?: Yes (2) EtOH dependence Qualifiers: Substance use status: uncomplicated Qualified Code(s): F10.20 - Alcohol dependence, uncomplicated Is this a current diagnosis for this admission?: Yes (3) Hypertensive emergency Is this a current diagnosis for this admission?: Yes (4) Peripheral edema Is this a current diagnosis for this admission?: Yes (5) Tobacco dependence Is this a current diagnosis for this admission?: Yes - Notes Notes: Congestive heart failure: Acute on chronic. Related to diastolic dysfunction and RV dysfunction etc. Possibly on the basis of hypertensive heart disease. Continue with IV diuretic therapy. Good control of blood pressure is being recommended with goal of 135/85. Continue with salt and fluid restriction. Carvedilol increased to 25 mg p.o. every 12 and losartan increased to 100 mg p.o. daily. Hypertensive emergency: Currently blood pressure seems to be under better control yesterday but today has creeped up. Continue with beta-latasha, TATUM/ARB /entresto therapy if LV systolic dysfunction is noted. Blood pressure goal is 135/85 or less. Pedal edema patient noted to have significant pedal edema. Probably related to chronic CHF. This is improving. Troponin I elevation: Was evaluated by a nuclear stress test. Patient had no complications. Results are pending. Alcohol dependence: Patient does drink 4 or more beers a day. Watch for withdrawal. Tobacco dependence: Patient has been advised to quit smoking. Continue with nicotine patch. - Time Time with patient: Greater than 35 minutes - CODE STATUS was discussed, patient remains full code. Surrogate decision-maker unchanged. Multiple medical problems were addressed. More than 50% of the time spent coordinating care, discussing management plans with involved caregivers. Management plans discussed with involved personnels. Medical decision making was of moderate to high complexity, patient's has multiple comorbidities. Medications reviewed and adjusted accordingly: Yes
--- NOTE | 2016-12-16 10:45 | PDOC PROGRESS REPORT ---
Subjective Progress Note for:: 01/15/17 Subjective:: Patient was seen yesterday in the morning while he was in the unit in preparation being transferred out. I believe that a note was dictated but somehow was not saved or in advertently deleted. His blood pressure has been stable. He came off all IV antihypertensives, nitroglycerin drip and also Cardene drip. He did tolerate carvedilol well. She still has significant pedal edema. Patient seems to be doing better with gradual improvement. Pt is denying any chest arm or neck discomfort. Patient denying any PND, orthopnea. Patient denied any sustained palpitations, dizziness, syncope, near syncope. Patient denying any fever chills. Patient denying any other significant discomfort. Patient is maintaining sinus rhythm. Review of systems: Rest review of systems negative. Medications: Medications have been reviewed. Physical Exam Vital Signs: Temp Pulse Resp BP Pulse Ox 98.0 F 89 19 181/99 H 99 12/16/16 07:14 12/16/16 07:14 12/16/16 07:14 12/16/16 07:14 12/16/16 07:14 Pulse Oximeter Continuous Start: 12/14/16 10: 53 Freq: RTQ4 Status: Complete Document 12/14/16 12:00 LDA (Rec: 12/14/16 14:06 LDA [email or web address]) Pulse Oximetry Assessment Oxygen Saturation (92-100) 93 Oxygen Delivery Method Room Air Fraction of Inspired Oxygen (FIO2) 21 Equipment Usage Equipment Standby Continuous SpO2 Machine # 00 Intake & Output 12/15/16 12/16/16 12/17/16 06:59 06:59 06:59 Intake Total 1994 1737 Output Total 67978 5893 Balance -8030 -1202 Weight 89.2 kg Exam: GENERAL: well-nourished and in no acute distress. Alert and oriented x3 HEAD: Atraumatic, normocephalic. EYES: Pupils equal round and reactive to light, extraocular movements intact, sclera anicteric, conjunctiva are normal. ENT: TMs normal, nares patent, oropharynx clear without exudates. Moist mucous membranes. No oral ulcerations or bleeding gums noted NECK: supple without lymphadenopathy. Trachea is central. No cervical or axillary lymphadenopathy noted. Carotids are 2+, JVD 10 cm LUNGS: Respiration seems nonlabored, no significant accessory muscle action noted. Bibasilar fine crackles noted. No dullness noted. CHEST: Palpation of the chest wall shows no significant chest wall tenderness. No other significant abnormalities noted. 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 ABDOMEN: Soft, no significant tenderness appreciated, normoactive bowel sounds. No guarding, no rebound. No rigidity noted . No masses appreciated. EXTREMITIES: Pedal pulses are 1-2+, no calf tenderness noted. No clubbing or cyanosis. 2 + pedal edema noted NEUROLOGICAL: Focused neurological exam showed no significant neurologic deficit. Normal speech, no focal weakness appreciated. PSYCH: Normal mood, normal affect. Judgment and insight within normal limits. SKIN: No significant ecchymosis, rash, ulcerations or signs of pruritus noted. MUSCULOSKELETAL EXAM: No significant joint swelling noted. Results Laboratory Results: 12/16/16 04:30 12/16/16 04:30 Sodium 133.5 L Potassium 3.5 L Chloride 93 L Carbon Dioxide 31 H Anion Gap 10 BUN 22 H Creatinine 1.03 Est GFR ( Amer) > 60 Est GFR (Non-Af Amer) > 60 Glucose 117 H Calcium 8.8 Magnesium 1.6 Total Bilirubin 1.8 H AST 34 ALT 32 Alkaline Phosphatase 171 H Total Protein 6.6 Albumin 3.3 L 12/14/16 12/14/16 12/14/16 14:03 15:10 15:10 Creatine Kinase 90 CK-MB (CK-2) 1.67 Troponin I 0.059 0.065 NT-Pro-B Natriuret Pep 12/14/16 12/14/16 12/15/16 21:02 21:02 04:50 Creatine Kinase 85 CK-MB (CK-2) 1.45 Troponin I 0.052 0.066 NT-Pro-B Natriuret Pep 7440 H 12/16/16 04:30 Creatine Kinase CK-MB (CK-2) Troponin I NT-Pro-B Natriuret Pep 4080 H EKG Comments: Telemetry strips reviewed. Showed sinus rhythm without any sustained tachycardia or bradycardia arrhythmias. Impressions: Chest X-Ray 12/14/16 08:55 IMPRESSION: Congestive heart failure. Abdomen Ultrasound 12/15/16 00:00 IMPRESSION: Small ascites. Mild hepatic steatosis. Assessment & Plan - Diagnosis (1) Congestive heart failure Qualifiers: Congestive heart failure type: unspecified congestive heart failure type Congestive heart failure chronicity: acute Qualified Code(s): I50.9 - Heart failure, unspecified Is this a current diagnosis for this admission?: Yes (2) EtOH dependence Qualifiers: Substance use status: uncomplicated Qualified Code(s): F10.20 - Alcohol dependence, uncomplicated Is this a current diagnosis for this admission?: Yes (3) Hypertensive emergency Is this a current diagnosis for this admission?: Yes (4) Peripheral edema Is this a current diagnosis for this admission?: Yes (5) Tobacco dependence Is this a current diagnosis for this admission?: Yes - Notes Notes: Congestive heart failure: Acute on chronic. CHF secondary to diastolic dysfunction and fluid overload along with RV dysfunction as well. Possibly on the basis of hypertensive heart disease. Continue with IV diuretic therapy. Good control of blood pressure is being recommended with goal of 135/85. Continue with salt and fluid restriction. Recommend TATUM/ARB/entresto therapy, beta-latasha therapy. 2D echo results were reviewed with the patient. Hypertensive emergency: Currently blood pressure seems to be under better control. Continue with beta-latasha, TATUM/ARB/entresto therapy if LV systolic dysfunction is noted. Blood pressure goal is 135/85 or less. Troponin I elevation: There is mild troponin I elevation and is felt related to CHF and severe hypertension. Patient will benefit from ischemia workup. This was discussed in detail with the patient and was scheduled. Pedal edema patient noted to have significant pedal edema. Probably related to chronic CHF. Continue diuretic therapy. Alcohol dependence: Patient does drink 4 or more beers a day. Watch for withdrawal. Tobacco dependence: Patient has been advised to quit smoking. Continue with nicotine patch. In view of severe hypertension, patient may benefit from a sleep evaluation to rule out any sleep apnea syndrome.. - Time Time with patient: Greater than 35 minutes - CODE STATUS was discussed, patient remains full code. Surrogate decision-maker unchanged. Multiple medical problems were addressed. More than 50% of the time spent coordinating care, discussing management plans with involved caregivers. Management plans discussed with involved personnels. Medical decision making was of moderate to high complexity, patient's has multiple comorbidities. Medications reviewed and adjusted accordingly: Yes
--- NOTE | 2016-12-16 11:12 | PDOC PROGRESS REPORT ---
Subjective Progress Note for:: 12/16/16 Subjective:: Patient is seen on rounds in follow up of his hypertensive urgency and heart failure. CHRISTIANO DOSHI is a 61 year old male presents from home at the insistence of his family for progressive swelling of his legs, worsening exertional dyspena, weight gain, orthopnea of >3pillows sleeping upright in recliner, abdominal bloating, cough with clear phlegm and exertional wheezing. He stopped going to the [facility] over a year ago, doesn't like them, nothing personal. 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 He denies chest pain, palpitations, n/v/d, PND, fevers/chills, recent travel, calf pain or symptoms of claudication. He notes weight gain of unknown amount and his shoes don't fit anymore due to the swelling. To his knowledge he's never had AMI, CHF, cardiac stress test or cath and isn't diabetic or have COPD in spite of at least 1/2 ppd for >30yrs but freely admits he doesn't go to the doctor for fear of these diagnoses. He admits to 1-2 beers daily but family pulled me aside to note at least 3-4 on weekdays and more on the weekend though they confirm no prior hx of withdrawal, seizures or treatment/rehab. He states he overall is feeling much better. Physical Exam Vital Signs: Temp Pulse Resp BP Pulse Ox 98.0 F 89 19 181/99 H 99 12/16/16 07:14 12/16/16 07:14 12/16/16 07:14 12/16/16 07:14 12/16/16 07:14 Pulse Oximeter Continuous Start: 12/14/16 10: 53 Freq: RTQ4 Status: Complete Document 12/14/16 12:00 LDA (Rec: 12/14/16 14:06 LDA [email or web address]) Pulse Oximetry Assessment Oxygen Saturation (92-100) 93 Oxygen Delivery Method Room Air Fraction of Inspired Oxygen (FIO2) 21 Equipment Usage Equipment Standby Continuous SpO2 Machine # 00 Intake & Output 07/3112/16/16 12/17/16 06:59 06:59 06:59 Intake Total 1994 595 Output Total 43256 6220 Balance -8030 -1202 Weight 89.2 kg General appearance: PRESENT: no acute distress, well-developed, well-nourished Head exam: PRESENT: atraumatic, normocephalic Eye exam: PRESENT: conjunctiva pink, EOMI, PERRLA. ABSENT: scleral icterus Ear exam: PRESENT: normal external ear exam Mouth exam: PRESENT: moist, tongue midline Neck exam: ABSENT: carotid bruit, JVD, lymphadenopathy, thyromegaly Respiratory exam: PRESENT: rales - Fine bibasilar crackles, symmetrical, unlabored Cardiovascular exam: PRESENT: RRR. ABSENT: diastolic murmur, rubs, systolic murmur Pulses: PRESENT: normal dorsalis pedis pul Vascular exam: PRESENT: normal capillary refill GI/Abdominal exam: PRESENT: normal bowel sounds, soft. ABSENT: distended, guarding, mass, organolmegaly, rebound, tenderness Rectal exam: PRESENT: deferred Extremities exam: PRESENT: full ROM. ABSENT: calf tenderness, clubbing, pedal edema Musculoskeletal exam: PRESENT: ambulatory, full ROM Neurological exam: PRESENT: alert, awake, oriented to person, oriented to place , oriented to time, oriented to situation, CN II-XII grossly intact. ABSENT: motor sensory deficit Psychiatric exam: PRESENT: agitated, appropriate affect, normal mood. ABSENT: homicidal ideation, suicidal ideation Skin exam: PRESENT: dry, intact, warm. ABSENT: cyanosis, rash Results Laboratory Results: 12/16/16 04:30 12/16/16 04:30 Sodium 133.5 L Potassium 3.5 L Chloride 93 L Carbon Dioxide 31 H Anion Gap 10 BUN 22 H Creatinine 1.03 Est GFR ( Amer) > 60 Est GFR (Non-Af Amer) > 60 Glucose 117 H Calcium 8.8 Magnesium 1.6 Total Bilirubin 1.8 H AST 34 ALT 32 Alkaline Phosphatase 171 H Total Protein 6.6 Albumin 3.3 L 12/14/16 12/14/16 12/14/16 14:03 15:10 15:10 Creatine Kinase 90 CK-MB (CK-2) 1.67 Troponin I 0.059 0.065 NT-Pro-B Natriuret Pep 07/12/14/16 12/15/16 21:02 21:02 04:50 Creatine Kinase 85 CK-MB (CK-2) 1.45 Troponin I 0.052 0.066 NT-Pro-B Natriuret Pep 7440 H 12/16/16 04:30 Creatine Kinase CK-MB (CK-2) Troponin I NT-Pro-B Natriuret Pep 4080 H Impressions: Chest X-Ray 12/14/16 08:55 IMPRESSION: Congestive heart failure. Abdomen Ultrasound 12/15/16 00:00 IMPRESSION: Small ascites. Mild hepatic steatosis. Assessment & Plan - Diagnosis (1) Acute systolic CHF (congestive heart failure), NYHA class 4 Is this a current diagnosis for this admission?: YesPlan: Patient has been aggressively diuresed. His edema has resolved. His dyspnea has resolved. Blood pressure control is improved (2) Hypertensive emergency Is this a current diagnosis for this admission?: YesPlan: Blood pressure controlled on ARB and Coreg (3) EtOH dependence Qualifiers: Substance use status: uncomplicated Qualified Code(s): F10.20 - Alcohol dependence, uncomplicated Is this a current diagnosis for this admission?: YesPlan: Patient has had no signs of DTs (4) Noncompliance with medication regimen Is this a current diagnosis for this admission?: YesPlan: Patient has been counseled. He vows improved compliance post discharge (5) Peripheral edema Is this a current diagnosis for this admission?: YesPlan: Resolved (6) Tobacco dependence Is this a current diagnosis for this admission?: YesPlan: Counseled. He states he is contemplating quitting - Time Time Spent with patient: 25-34 minutes Smoking Cessation Education: 3 to 10 minutes Medications reviewed and adjusted accordingly: Yes Anticipated discharge: Home Within: within 24 hours
[2016-12-16] MEDS: THIAMINE HCL 100 MG TABLET PO SCH (11:56)
--- NOTE | 2016-12-16 12:51 | DRAGON STRESS TEST REPORT ---
INTRAVENOUS LEXISCAN CARDIOLITE STRESS TEST USING SINGLE PHOTON EMMISION COMPUTERIZED TOMOGRAPHIC. DATE OF PROCEDURE: December 16, 2016 INDICATION : CHF and abnormal troponin I. CARDIAC RISK FACTORS: Hypertension, tobacco abuse RESTING EKG: Sinus rhythm, LVH with secondary ST-T wave changes STRESS EKG: No significant changes noted with LexiScan bolus REASON FOR TERMINATION: Protocol. PROCEDURE REPORT: Baseline heart rate 86 beats per minute with blood pressure of 179/99. Patient had no significant complaints. Heart rate at 2 minutes post bolus 91 with a blood pressure of 195/93. 3 minutes post bolus heart rate 86 with blood pressure of 178/95. No significant EKG changes were noted. Patient had no significant complaints during the procedure or postprocedure. Patient injected with Aminophyllin 75 mg at 3 minutes or later after Lexiscan bolus. CONCLUSIONS: Normal EKG and hemodynamic response to IV LexiScan. NUCLEAR DATA: At rest the patient was given 9.61 millicuries of technetium 99 sestamibi injected intravenously. As per protocol rest gated SPECT images were obtained. Subsequently the patient was given intravenous LexiScan at a dose of 0.4 mg in 5 mL intravenously, followed by flush with normal saline. Subsequently the stress dose of 41.3 millicuries of technetium 99 sestamibi was injected intravenously. As per protocol stress gated images were obtained. NUCLEAR INTERPRETATION: Both raw and processed data were used for interpretation. Visual, qualitative, computer-generated quantitative data was used. There was good myocardial uptake of technetium compound. Motion artifact and soft tissue attenuations were noted. Increased visceral uptake was noted. No definitive areas of transient perfusion defect noted. No definitive areas of fixed perfusion defect noted except for mild decreased uptake in the inferior wall which is felt to be related to diaphragmatic attenuation. Cannot rule out an area of mild fixed defect or mild scar. EKG gated imaging showed LV EF at 33 %, rest and stress gated EF similar visually, mild diffuse hypokinesia noted. T. I D. ratio was 1.0. Lung heart ratio noted to be within normal limits 0.33. No significant extracardiac and abnormal radiotracer activities were noted. RV free wall uptake was noted to be mildly increased. IMPRESSION: Also refer to comments under nuclear interpretation. Also test results needs to be interpreted in the context of pretest probability. 1. There is no definitive scintigraphic evidence of LexiScan induced myocardial ischemia. 2. No definitive areas of fixed perfusion defect noted except for mild decreased uptake in the inferior wall which is felt to be related to diaphragmatic attenuation. Cannot rule out an area of mild fixed defect or mild scar. 3. EKG gated imaging shows left ejection fraction of approximately 33 % with mild diffuse hypokinesia. 4. Clinical correlation requested as occasionally single vessel disease or balanced ischemia could be missed. In approximately 10% of the cases Lexiscan may not cause adequate vasodilatory stress. RECOMMENDATIONS: Aggressive risk factor modification, medical therapy. Clinical correlation with echocardiogram derived ejection fraction. Inability to exercise by itself can lead to increased cardiovascular event risks. Consider cardiology consultation and or follow-up if clinically indicated. I AM AVAILABLE FOR CARDIOLOGY CONSULTATION AND FOLLOWUP IF REQUESTED BY PMD Melody Pacheco M.D., DM Manager Procurement client experience manager, Board certified in cardiovascular diseases, Nuclear cardiology, Echocardiography Cardiac CT and cardiac MRI Ph. [phone] JANEE
[2016-12-16] MEDS ORDERED: AMINOPHYLLINE INJ/PF 250 MG/10 ML SDV IV ONE (14:07)
[2016-12-16] MEDS ORDERED: REGADENOSON INJ 0.4 MG/5 ML DISP.SYRIN IV ONE (14:07)
[2016-12-16] MEDS: HYDRALAZINE HCL INJ/PF 20 MG/1 ML SDV IV PRN (17:14)
[2016-12-16] MEDS: INSULIN LISPRO 100 UNIT/ML 3 ML VIAL SUBCUT PRN (17:46)
[2016-12-17 06:35] LABS: ALANINE AMINOTRANSFERASE 39 U/L (21-72); ALBUMIN 3.6 g/dL (3.5-5.0); ALKALINE PHOSPHATASE 191 U/L (38-126); ANION GAP 12 (5-19); ASPARTATE AMINO TRANSFERASE 38 U/L (17-59); BILIRUBIN,TOTAL 1.6 mg/dL (0.2-1.3); BLOOD UREA NITROGEN 27 mg/dL (7-20); CALCIUM 9.2 mg/dL (8.4-10.2); CARBON DIOXIDE 28 mmol/L (22-30); CHLORIDE 94 mmol/L (98-107); CREATININE RESULT 1.23 mg/dL (0.52-1.25); GLUCOSE 134 mg/dL (75-110); POTASSIUM 3.9 mmol/L (3.6-5.0); SODIUM 133.7 mmol/L (137-145)
[2016-12-17] MEDS: HYDRALAZINE HCL INJ/PF 20 MG/1 ML SDV IV PRN (08:41)
[2016-12-17] MEDS ORDERED: LOSARTAN POTASSIUM 50 MG TABLET PO SCH (10:00)
[2016-12-17] MEDS: POTASSIUM CHLORIDE 10 MEQ TABLET.SA PO SCH (10:25)
[2016-12-17] MEDS: ENOXAPARIN SODIUM INJ 30 MG/0.3 ML DISP.SYRIN SUBCUT SCH (10:25)
[2016-12-17] MEDS: DOCUSATE SODIUM 100 MG CAPSULE PO SCH (10:25)
[2016-12-17] MEDS: SPIRONOLACTONE 25 MG TABLET PO SCH (10:26)
[2016-12-17] MEDS: ISOSORBIDE MONONITRATE 60 MG TAB.ER.24H PO SCH (10:26)
[2016-12-17] MEDS: CARVEDILOL 12.5 MG TABLET PO SCH (10:26)
[2016-12-17] MEDS: ASPIRIN 81 MG TABLET, CHEWABLE PO SCH (10:27)
[2016-12-17] MEDS: FAMOTIDINE 20 MG TABLET PO SCH (10:27)
[2016-12-17 12:53] VITALS: BP 168/90
--- NOTE | 2016-12-17 13:58 | PDOC PROGRESS REPORT ---
Subjective Progress Note for:: 12/17/16 Subjective:: Patient seems to be doing better with significant improvement. Pt is denying any chest arm or neck discomfort. Patient denying any PND, orthopnea. Patient denied any sustained palpitations, dizziness, syncope, near syncope. Patient denying any fever chills. Patient denying any other significant discomfort. Blood pressure noted to be high today. Nuclear stress test were discussed with the patient in detail. No definitive transient perfusion defect or ischemia noted. Diaphragmatic attenuation artifact versus mild fixed defect noted in the inferior wall. Patient being advised medical management at this time. 2D echo results were discussed. It shows moderate LVH but relatively well- preserved LVEF. Patient is maintaining sinus rhythm. Review of systems: Rest review of systems negative. Medications: Medications have been reviewed. Physical Exam Vital Signs: Temp Pulse Resp BP Pulse Ox 99.5 F 105 H 19 168/90 H 99 12/17/16 12:51 12/17/16 12:51 12/17/16 12:51 12/17/16 12:51 12/17/16 12:51 Pulse Oximeter Continuous Start: 12/14/16 10: 53 Freq: RTQ4 Status: Complete Document 12/14/16 12:00 LDA (Rec: 12/14/16 14:06 LDA [email or web address]) Pulse Oximetry Assessment Oxygen Saturation (92-100) 93 Oxygen Delivery Method Room Air Fraction of Inspired Oxygen (FIO2) 21 Equipment Usage Equipment Standby Continuous SpO2 Machine # 00 Intake & Output 12/16/16 12/17/16 12/18/16 06:59 06:59 06:59 Intake Total 1738 1297 Output Total 2940 5100 Balance -1202 -3803 Weight 89 kg 88 kg Exam: GENERAL: well-nourished and in no acute distress. Alert and oriented x3 HEAD: Atraumatic, normocephalic. EYES: Pupils equal round and reactive to light, extraocular movements intact, sclera anicteric, conjunctiva are normal. ENT: TMs normal, nares patent, oropharynx clear without exudates. Moist mucous membranes. No oral ulcerations or bleeding gums noted NECK: supple without lymphadenopathy. Trachea is central. No cervical or axillary lymphadenopathy noted. Carotids are 2+, JVD 8 cm LUNGS: Respiration seems nonlabored, no significant accessory muscle action noted. Breath sounds clear to auscultation bilaterally and equal noted. No wheezes rales or rhonchi noted. No significant dullness noted on percussion. CHEST: Palpation of the chest wall shows no significant chest wall tenderness. No other significant abnormalities noted. HEART: [place] [employer]TER, No PSH, 1/6 TRAV aortic area, 1/6 ortiz systolic murmur mitral area, no rubs, no gallops. ABDOMEN: Soft, no significant tenderness appreciated, normoactive bowel sounds. No guarding, no rebound. No rigidity noted . No masses appreciated. EXTREMITIES: Pedal pulses are 1-2+, no calf tenderness noted. No clubbing or cyanosis, 1+ pedal edema noted NEUROLOGICAL: Focused neurological exam showed no significant neurologic deficit. Normal speech, no focal weakness appreciated. PSYCH: Normal mood, normal affect. Judgment and insight within normal limits. SKIN: No significant ecchymosis, rash, ulcerations or signs of pruritus noted. MUSCULOSKELETAL EXAM: No significant joint swelling noted. Results Laboratory Results: 12/17/16 05:15 12/17/16 05:15 Sodium 133.7 L Potassium 3.9 Chloride 94 L Carbon Dioxide 28 Anion Gap 12 BUN 27 H Creatinine 1.23 Est GFR ( Amer) > 60 Est GFR (Non-Af Amer) > 60 Glucose 134 H Calcium 9.2 Total Bilirubin 1.6 H AST 38 ALT 39 Alkaline Phosphatase 191 H Total Protein 7.0 Albumin 3.6 12/14/16 12/14/16 12/14/16 14:03 15:10 15:10 Creatine Kinase 90 CK-MB (CK-2) 1.67 Troponin I 0.059 0.065 NT-Pro-B Natriuret Pep 12/14/16 12/14/16 12/15/16 21:02 21:02 04:50 Creatine Kinase 85 CK-MB (CK-2) 1.45 Troponin I 0.052 0.066 NT-Pro-B Natriuret Pep 7440 H 12/16/16 12/17/16 04:30 05:15 Creatine Kinase CK-MB (CK-2) Troponin I NT-Pro-B Natriuret Pep 4080 H 6880 H EKG Comments: Telemetry strips shows sinus rhythm, no sustained tachycardia or bradycardia arrhythmias were noted. Impressions: Chest X-Ray 12/14/16 08:55 IMPRESSION: Congestive heart failure. Abdomen Ultrasound 12/15/16 00:00 IMPRESSION: Small ascites. Mild hepatic steatosis. Assessment & Plan - Diagnosis (1) Congestive heart failure Qualifiers: Qualified Code(s): I50.9 - Heart failure, unspecified Is this a current diagnosis for this admission?: Yes (2) EtOH dependence Qualifiers: Qualified Code(s): F10.20 - Alcohol dependence, uncomplicated Is this a current diagnosis for this admission?: Yes (3) Hypertensive emergency Is this a current diagnosis for this admission?: Yes (4) Peripheral edema Is this a current diagnosis for this admission?: Yes (5) Tobacco dependence Is this a current diagnosis for this admission?: Yes - Notes Notes: Congestive heart failure: Acute on chronic. Related to diastolic dysfunction and RV dysfunction etc. Possibly on the basis of hypertensive heart disease. Continue with IV diuretic therapy. Good control of blood pressure is being recommended with goal of 135/85. Continue with salt and fluid restriction. Carvedilol increased to 25 mg p.o. every 12 and losartan increased to 100 mg p.o. daily. Patient tolerating these well. Recommend discharge on diuretics at low dose such as 20 mg of Lasix p.o. daily if discharged today Hypertensive emergency: Currently blood pressure seems to be under better control yesterday but today has creeped up. Continue with beta-latasha, TATUM/ARB /entresto therapy if LV systolic dysfunction is noted. Blood pressure goal is 135/85 or less. Pedal edema patient noted to have significant pedal edema. Probably related to chronic CHF. This is improving. Now patient just has 1+ edema. Troponin I elevation: Was evaluated by a nuclear stress test. Patient had no complications. Nuclear stress test did not show any definitive areas of transient perfusion defect or ischemia. Diaphragmatic attenuation artifact versus mild fixed defect noted in the inferior wall. Patient has well preserved LV EF and is not having any chest pain therefore being advised aggressive risk factor modification and medical management. Patient understands that single-vessel disease or worse ischemia could be missed. 2D echocardiogram results were also discussed in detail. I discussed outpatient management of CHF with the patient. This would include salt and fluid restriction, daily weighing and adjusting the dose of diuretics. Patient to follow-up with bridge rigger of his choice, however he prefers to follow-up with me. Alcohol dependence: Patient does drink 4 or more beers a day. Patient advised to abstinence and/or moderation. Tobacco dependence: Patient has been advised to quit smoking. Continue with nicotine patch. - Time Time with patient: Greater than 35 minutes - CODE STATUS was discussed, patient remains full code. Surrogate decision-maker unchanged. Multiple medical problems were addressed. More than 50% of the time spent coordinating care, discussing management plans with involved caregivers. Management plans discussed with involved personnels. Medical decision making was of moderate to high complexity, patient's has multiple comorbidities. Significant time spent discussing the results of recent cardiac evaluation and outpatient management of CHF. Total time spent approximately 50 minutes. Medications reviewed and adjusted accordingly: Yes
--- NOTE | 2016-12-17 14:01 | PDOC DISCHARGE SUMMARY ---
General - Admit/Disc Date/PCP Admission Date/Primary Care Provider: 12/14/16 10:52 RADHA LERMA MD Discharge Date: 12/17/16 - Discharge Diagnosis (1) Acute systolic CHF (congestive heart failure), NYHA class 4 Is this a current diagnosis for this admission?: YesSummary: Stable patient has had negative diuresis of 15 liters in the last 3 days. Will be discharged on Coreg, Losartan,nitrate, spirnolactone and daily lasix 20 mg. He was counseled to weigh himself daily and follow low sodium diet (2) Hypertensive emergency Is this a current diagnosis for this admission?: YesSummary: Resolved with medication adjustment (3) EtOH dependence Is this a current diagnosis for this admission?: YesSummary: Counseled on need to quit (4) Noncompliance with medication regimen Is this a current diagnosis for this admission?: YesSummary: He was counseled. He is agreeable to be compliant (5) Peripheral edema Is this a current diagnosis for this admission?: YesSummary: Resolved with aggressive diuresis (6) Tobacco dependence Is this a current diagnosis for this admission?: YesSummary: Counseled - Additional Information Resuscitation Status: Full Code Discharge Diet: Cardiac, Diabetic Discharge Activity: Activity As Tolerated, Balance Activity w/Rest, Weigh Daily Home Medications: Aspirin [Aspirin 81 mg Chewable Tablet] 81 mg PO DAILY 12/16/16 Acetaminophen [Tylenol 325 mg Tablet] 975 mg PO Q4HP PRN tablet 12/17/16 Aspirin [Aspirin 81 mg Chewable Tablet] 81 mg PO DAILY #30 tab.chew 12/17/16 Carvedilol [Coreg 25 mg Tablet] 1 tab PO Q12 #60 tab 12/17/16 Furosemide [Lasix 20 mg Tablet] 20 mg PO QAM #30 tablet 12/17/16 Isosorbide Mononitrate [Imdur 60 mg Tablet.er] 60 mg PO DAILY #30 tab.er.24h 07/04 Losartan Potassium [Cozaar 100 mg Tablet] 100 mg PO DAILY #30 tablet 12/17/16 Potassium Chloride [Klor-Con 10 Meq Tablet.sa] 20 meq PO DAILY #60 tablet.sa 07/04 Spironolactone [Aldactone 25 mg Tablet] 25 mg PO DAILY #30 tablet 12/17/16 History of Present Illness Patient complains of: Swelling and edema History of Present Illness: CHRISTIANO DOSHI is a 61 year old male presents from home at the insistence of his family for progressive swelling of his legs, worsening exertional dyspena, weight gain, orthopnea of >3pillows sleeping upright in recliner, abdominal bloating, cough with clear phlegm and exertional wheezing. He stopped going to the MD over a year ago, doesn't like them, nothing personal. 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 He denies chest pain, palpitations, n/v /d, PND, fevers/chills, recent travel, calf pain or symptoms of claudication. He notes weight gain of unknown amount and his shoes don't fit anymore due to the swelling. To his knowledge he's never had AMI, CHF, cardiac stress test or cath and isn't diabetic or have COPD in spite of at least 1/2 ppd for >30yrs but freely admits he doesn't go to the doctor for fear of these diagnoses. He admits to 1-2 beers daily but family pulled me aside to note at least 3-4 on weekdays and more on the weekend though they confirm no prior hx of withdrawal, seizures or treatment/rehab. Eval in ED shows he is in mauro heart failure with markedly elevated BPs warranting inpatient ICU treatment and further evaluation. Hospital Course Hospital Course: Patient was then admitted to the ICU on IV Cardene and nitroglycerin drips. He was aggressively diuresed and had oral anti-hypertensives initiated. Dr. Pacheco, cardiology, was consulted for heart failure management. IV Cardene was able to be weaned off following day and he was transferred to the IMCU. He underwent transthoracic echocardiogram and Cardiolite stress test. Echocardiogram showed low normal EF of 50-55%, and grade 2/4 diastolic dysfunction. There are no valvular abnormalities. Cardiolite stress test showed no ischemia. Antihypertensives were increased and he was continued to be diuresed. His peripheral edema resolved. He was seen by nursing education for heart failure management post discharge. He is agreeable to be compliant with medications. He was noted to have mildly elevated blood glucose during his admission. He was placed on sliding scale insulin coverage. He will need follow-up regarding blood pressure as well as diabetes mellitus management. Today he has been diuresed to 15 L over the last [address] Pacheco feels he is ready for discharge. Patient is agreeable. Physical Exam Vital Signs: Temp Pulse Resp BP Pulse Ox 99.5 F 105 H 19 168/90 H 99 12/17/16 12:51 12/17/16 12:51 12/17/16 12:51 12/17/16 12:51 12/17/16 12:51 Pulse Oximeter Continuous Start: 12/14/16 10: 53 Freq: RTQ4 Status: Complete Document 12/14/16 12:00 LDA (Rec: 12/14/16 14:06 LDA [email or web address]) Pulse Oximetry Assessment Oxygen Saturation (92-100) 93 Oxygen Delivery Method Room Air Fraction of Inspired Oxygen (FIO2) 21 Equipment Usage Equipment Standby Continuous SpO2 Machine # 00 Intake & Output 12/16/16 12/17/16 12/18/16 06:59 06:59 06:59 Intake Total 1738 1297 Output Total 2940 5100 Balance -1202 -3803 Weight 89 kg 88 kg General appearance: PRESENT: no acute distress, well-developed, well-nourished Head exam: PRESENT: atraumatic, normocephalic Eye exam: PRESENT: conjunctiva pink, EOMI, PERRLA. ABSENT: scleral icterus Ear exam: PRESENT: normal external ear exam Mouth exam: PRESENT: moist, tongue midline Neck exam: PRESENT: full ROM. ABSENT: JVD, lymphadenopathy, thyromegaly Respiratory exam: PRESENT: decreased breath sounds, symmetrical, unlabored Cardiovascular exam: PRESENT: RRR. ABSENT: diastolic murmur, rubs, systolic murmur Pulses: PRESENT: normal carotid pulses, normal radial pulses Vascular exam: PRESENT: normal capillary refill GI/Abdominal exam: PRESENT: normal bowel sounds, soft. ABSENT: distended, guarding, mass, organolmegaly, rebound, tenderness Rectal exam: PRESENT: deferred Extremities exam: PRESENT: full ROM. ABSENT: calf tenderness, clubbing, pedal edema Neurological exam: PRESENT: alert, awake, oriented to person, oriented to place , oriented to time, oriented to situation, CN II-XII grossly intact. ABSENT: motor sensory deficit Psychiatric exam: PRESENT: agitated Skin exam: PRESENT: dry, intact, warm. ABSENT: cyanosis, rash Results Laboratory Results: 12/17/16 05:15 12/17/16 05:15 Sodium 133.7 L Potassium 3.9 Chloride 94 L Carbon Dioxide 28 Anion Gap 12 BUN 27 H Creatinine 1.23 Est GFR ( Amer) > 60 Est GFR (Non-Af Amer) > 60 Glucose 134 H Calcium 9.2 Total Bilirubin 1.6 H AST 38 ALT 39 Alkaline Phosphatase 191 H Total Protein 7.0 Albumin 3.6 12/14/16 12/14/16 12/14/16 14:03 15:10 15:10 Creatine Kinase 90 CK-MB (CK-2) 1.67 Troponin I 0.059 0.065 NT-Pro-B Natriuret Pep 12/14/16 12/14/16 12/15/16 21:02 21:02 04:50 Creatine Kinase 85 CK-MB (CK-2) 1.45 Troponin I 0.052 0.066 NT-Pro-B Natriuret Pep 7440 H 12/16/16 12/17/16 04:30 05:15 Creatine Kinase CK-MB (CK-2) Troponin I NT-Pro-B Natriuret Pep 4080 H 6880 H Impressions: Chest X-Ray 12/14/16 08:55 IMPRESSION: Congestive heart failure. Abdomen Ultrasound 12/15/16 00:00 IMPRESSION: Small ascites. Mild hepatic steatosis. Qualifiers PATEINT BEING DISCHARGED WITH ANY OF THE FOLLOWING DIAGNOSIS?: Heart Failure HF Pt being discharged on ACEI for LVEF less than 40%?: Yes HF Pt being discharged on ARBS for LVEF less than 40%?: Yes HF Pt with Afib discharged with Warfarin?: No HF Pt discharged on evidence-based Beta Christian:: Yes Plan Discharge Plan: Home with family Time Spent: Less than 30 Minutes
== END 2016-12-17 13:25 | disposition home or self-care (01) | DRG 304 ==
LOC: ER 08:34 → UNDOADMIN 10:24 → EH 10:24 → ICU 11:25 → 3W 12-15 23:20
PROVIDERS: ADMIT Internal Medicine; ATTEND Internal Medicine
DX: I16.1 Hypertensive emergency (principal); I50.21 Acute systolic (congestive) heart failure; I13.0 Hypertensive heart and chronic kidney disease with heart failure and stage 1 through stage 4 chronic kidney disease, or unspecified chronic kidney disease; N18.2 Chronic kidney disease, stage 2 (mild); F17.210 Nicotine dependence, cigarettes, uncomplicated; K76.0 Fatty (change of) liver, not elsewhere classified; J44.9 Chronic obstructive pulmonary disease, unspecified; R00.0 Tachycardia, unspecified; F10.20 Alcohol dependence, uncomplicated; G51.0 Bell's palsy; R73.9 Hyperglycemia, unspecified; I25.10 Atherosclerotic heart disease of native coronary artery without angina pectoris; Z79.899 Other long term (current) drug therapy; Z91.14 Patient's other noncompliance with medication regimen; Z82.49 Family history of ischemic heart disease and other diseases of the circulatory system; Z83.3 Family history of diabetes mellitus; Z83.6 Family history of other diseases of the respiratory system
CPT/HCPCS: 36415; 71010; 76705; 78452; 80048; 80053; 80061; 81001; 82550; 82553; 82803; 82962; 83036; 83735; 83880; 84443; 84484; 85025; 85610; 85730; 93005; 93010; 93017; 93306; 96374; 99291; A9500; J0280; J0360; J1650; J1815; J1940; J2785; J3475; J3490; Q9969

== ENCOUNTER 2017-02-17 11:02 | Emergency (ER) | payer BC, OTHER ==
--- NOTE | 2017-02-17 12:13 | ER Document Report ---
HPI - HPI Pain Level: 3 Notes: Patient is a 61-year-old male who presents the ED complaining of chronic bilateral knee pain and swelling x years. Patient states that he did have a meniscal surgery in the past to his right knee and ambulates with a single- point cane. Patient states that the pain started increasing his right knee so he started using his left leg more and now that has started to bother him as well. Patient states he has not been seen by an orthopedic provider in many years. Patient states that he is currently unable to work because of the pain as his legs will stiffen up on him after sitting still for a short period time. The pain does not radiate. He has not noticed any warmth or redness to the areas. No other concerns or complaints at this time. Denies any headache, fever, neck pain, URI, sore throat, chest pain, palpitations, syncope, cough, shortness of breath, wheeze, dyspnea, abdominal pain, nausea/vomiting/diarrhea, urinary retention, dysuria, hematuria, back pain, loss of control of bowel or bladder, numbness/tingling, saddle anesthesia, muscle paralysis/weakness, or rash. Patient denies any drug allergies, distance travel, cancer, DVT, PE, gout , or other significant past medical history. - ROS Notes: REVIEW OF SYSTEMS: CONSTITUTIONAL : Denies fever, chills, or sweats. Denies recent illness. EENT: Denies eye, ear, throat, or mouth pain or symptoms. Denies nasal or sinus congestion or discharge. Denies throat, tongue, or mouth swelling or difficulty swallowing. CARDIOVASCULAR: Denies chest pain. Denies palpitations or racing or irregular heart beat. Denies ankle edema. RESPIRATORY: Denies cough, cold, or chest congestion. Denies shortness of breath, difficulty breathing, or wheezing. GASTROINTESTINAL: Denies abdominal pain or distention. Denies nausea, vomiting , or diarrhea. Denies blood in vomitus, stools, or per rectum. Denies black, tarry stools. Denies constipation. GENITOURINARY: Denies difficulty urinating, painful urination, burning, frequency, blood in urine, or discharge. MUSCULOSKELETAL: see hpi SKIN: Denies rash, lesions or sores. NEUROLOGICAL: Denies confusion or altered mental status. Denies passing out or loss of consciousness. Denies dizziness or lightheadedness. Denies headache. Denies weakness or paralysis or loss of use of either side. Denies problems with gait or speech. Denies sensory loss, numbness, or tingling. ALL OTHER SYSTEMS REVIEWED AND NEGATIVE. Dictation was performed using Stream[employer] voice recognition software - DERM Skin Color: Normal Past Medical History - Social History Smoking Status: Current Every Day Smoker Frequency of alcohol use: Social Drug Abuse: None Family History: COPD, DM, Hypertension. denies: CAD, Malignancy, Thyroid Disfunction Patient has suicidal ideation: No Patient has homicidal ideation: No - Past Medical History Cardiac Medical History: Reports: Hx Congestive Heart Failure, Hx Hypertension Denies: Hx Heart Attack Pulmonary Medical History: Reports: Hx COPD Endocrine Medical History: Reports: Hx Diabetes Mellitus Type 2 Renal/ Medical History: Denies: Hx Peritoneal Dialysis Past Surgical History: Reports: Hx Orthopedic Surgery - right knee meniscus repair 1974 Vertical Provider Document - CONSTITUTIONAL Agree With Documented VS: Yes Notes: PHYSICAL EXAMINATION: GENERAL: Well-appearing, well-nourished and in no acute distress. LUNGS: Breath sounds clear to auscultation bilaterally and equal. No wheezes rales or rhonchi. HEART: Regular rate and rhythm without murmurs, rubs, gallops. Musculoskeletal: Knees b/l: FROM to passive/active. Strength 5+/5. + arthritic bone changes noted. + mild crepitus. + small effusions b/l. + mild tenderness generalized to knees. Extremities: No cyanosis, clubbing, or edema b/l. Peripheral pulses 2+. Capillary refill less than 3 seconds. NEUROLOGICAL: Normal speech, ataxic gait & uses SPC. Normal sensory, motor exams PSYCH: Normal mood, normal affect. SKIN: Warm, Dry, normal turgor, no rashes or lesions noted. - INFECTION CONTROL TRAVEL OUTSIDE OF THE [place] IN LAST 30 DAYS: No - RESPIRATORY O2 Sat by Pulse Oximetry: 98 Course - Re-evaluation Re-evalutation: 02/17/17 13:40 Patient is an afebrile, well-hydrated, 61-year-old male who presents the ED with chronic bilateral knee pain with effusions, suspect arthritic changes and inflammation. Vitals are stable. X-ray unremarkable of the knees bilaterally. PE is otherwise unremarkable for any neurovascular compromise. Low suspicion for any septic joint, sepsis, fracture, or dislocation. Patient is aware that his condition can change from initial presentation and he needs to monitor symptoms closely and seek medical attention if any acute changes. I reviewed with the patient that he will need an orthopedic consult for further evaluation and management. Patient does have a history of hypertension and I am not excited about throwing him on PO NSAIDs as he does not follow with his PCM regularly as well. I will send him home with topical Voltaren gel to use as directed. Work note was provided. Continue conservative measures as reviewed in discharge. Recheck with your PCM in the next week. Call orthopedics to schedule an appointment for further evaluation and management. Return to the ED with any worsening/concerning symptoms otherwise as reviewed in discharge. Patient is in agreement. - Vital Signs Vital signs: Temp Pulse Resp BP Pulse Ox 97.8 F 74 20 161/70 H 98 02/17/17 11:22 02/17/17 11:22 02/17/17 11:22 02/17/17 11:22 02/17/17 11:22 Discharge - Discharge Clinical Impression: Bilateral knee pain Qualifiers: Chronicity: acute Qualified Code(s): M25.561 - Pain in right knee Condition: Stable Disposition: HOME, SELF-CARE Instructions: Ice & Elevation ([facility]), Knee Exercise Program ([facility]), Warm Packs ( [facility]) Additional Instructions: Rest, Ice, Compression, Elevation Use cane as needed for ambulation assistance Tylenol/ibuprofen as needed Light stretches daily Strength exercises as able Moist heat and massage may help F/u with your PCP in 1 week for a recheck Consider consult(s) with Orthopedics/physical therapy for ongoing/worsening symptoms I recommend you call Orthopedics to schedule an appointment for further evaluation and management. Return to the ED with any worsening symptoms and/or development of fever, headache, chest pain, palpitations, syncope, shortness of breath, trouble breathing, abdominal pain, n/v/d, muscle weakness/paralysis, numbness/tingling, swelling, redness, or other worsening symptoms that are concerning to you. Prescriptions: Diclofenac Sodium [Voltaren] 4 gm TP QID PRN #100 gel..gm. PRN Reason: Forms: Elevated Blood Pressure, Smoking Cessation Education, Return to Work Referrals: [facility] [Provider Group] - Follow up in 3-5 days
--- NOTE | 2017-02-17 13:28 | RADIOLOGY REPORT (SQ) ---
EXAM DESCRIPTION: KNEE BILATERAL 1-2 VIEWS COMPLETED DATE/TIME: 02/17/2017 12:51 pm REASON FOR STUDY: unable to bear weight COMPARISON: None. NUMBER OF VIEWS: Two views right knee. Two views left knee. TECHNIQUE: AP and lateral radiographic images acquired of the right and left knee. LIMITATIONS: None. FINDINGS: MINERALIZATION: Osteopenia. BONES: No acute fracture or dislocation. No worrisome bone lesions. Marked degenerative changes of th e lateral compartment of the right knee with osteophytes and joint space narrowing. Patellofemoral d egenerative changes right greater than left. JOINT: Bilateral joint effusions. OTHER: No other significant finding. IMPRESSION: No acute fracture. Joint effusions. Degenerative changes right knee lateral compartment. TECHNICAL DOCUMENTATION: JOB ID: [id number] [employer]- All Rights Reserved
[2017-02-17 14:02] VITALS: BP 147/75
== END 2017-02-17 14:02 | disposition home or self-care (01) ==
LOC: ER 11:02
DX: M25.561 Pain in right knee (principal); M25.562 Pain in left knee; G89.29 Other chronic pain; M25.461 Effusion, right knee; M25.462 Effusion, left knee; Z98.890 Other specified postprocedural states; F17.200 Nicotine dependence, unspecified, uncomplicated; I10 Essential (primary) hypertension; J44.9 Chronic obstructive pulmonary disease, unspecified; E11.9 Type 2 diabetes mellitus without complications
CPT/HCPCS: 99283

== ENCOUNTER → 2018-04-13 | Outpatient (CLI) | payer OTHER ==
[~2018-04-13] MED LIST: REGADENOSON INJ 0.4 MG/5 ML DISP.SYRIN IV ONE
--- NOTE | 2018-04-14 08:14 | RADIOLOGY REPORT ---
STRESS TEST REPORT PATIENT NAME: CHRISTIANO DOSHI ROOM#: DATE OF SERVICE: 04/13/2018 AGE: 62Y ORDER#: [id number] REFERRING MD: Jd Velez M.D. INDICATION: For preoperative cardiac clearance for knee surgery. PROCEDURE REST/STRESS SINGLE ISOTOPE CARDIOLITE SPECT IMAGING WITH IV LEXISCAN STRESS AND GATED SPECT IMAGING CLINICAL HISTORY This is a 62-year-old black gentleman with no known coronary artery disease but has coronary risk factors of tobacco use, hypertension, and diabetes. Current symptomatology includes no pain. PROCEDURE The patient received IV Lexiscan 0.4 mg infused over 10 seconds. The resting heart rate was 65 BPM and increased to 88 BPM at the end of infusion. Resting blood pressure was 177/86 and increased to 186/85 at the end of infusion. The patient had no symptoms of chest pains, but did complain of shortness of breath. The resting 12 lead EKG showed normal sinus rhythm at 65 BMP, T-inversions were seen in the lateral leads (I, aVL, V5, V6). At the end of infusion no additional ST changes were seen. Rare PVCs seen. Myocardial perfusion imaging was performed at rest 60 minutes following the injection of 14.94 mCi Cardiolite. Ten seconds after the IV Lexiscan injection, the patient was injected with 43.9 mCi of Cardiolite and flushed. Gated post-stress tomographic imaging was performed 60 minutes after stress. FINDINGS The overall quality of the study is fair. Attenuation correction software was used. The left ventricular cavity is noted to be enlarged on both the rest and stress studies. There is, however, no transient ischemic dilatation of the left ventricle. Her TID ratio was 1.11. SPECT images showed a small area of moderately severe reversible ischemia in the inferior wall with no fixed effusion defects. The gated SPECT imaging showed reduced motion contraction in the basal two-thirds of the inferior wall, the basal inferoseptal wall, and the basal inferolateral wall. The ejection fraction was calculated to be 43%. IMPRESSION Myocardial perfusion imaging is abnormal. There is a small area of moderate severe reversible perfusion in the inferior wall with no fixed perfusion defect. Overall left ventricular systolic function was mildly reduced at 43% and there was regional wall motion abnormality seen in the inferior wall, the basal inferoseptal, and the basal inferolateral wall. No prior study for comparison. INTERPRETING PHYSICIAN: AREN PLASCENCIA M.D. /: [id number] TT: 1916 ID: [id number] /: [id number] TD: [id number] JOB: [id number] cc:AREN PLASCENCIA M.D. > MTDD
== END ==
LOC: RAD 06:19
PROVIDERS: ATTEND Internal Medicine Cardiovascular Disease
DX: Z01.810 Encounter for preprocedural cardiovascular examination (principal); I10 Essential (primary) hypertension
CPT/HCPCS: 93017; 78452; A9500; J2785; Q9969

== ENCOUNTER 2018-06-25 21:26 | Emergency (ER) | payer OTHER ==
--- NOTE | 2018-06-25 23:26 | ER Document Report ---
ED Medical Screen (RME) - General Chief Complaint: Breathing Difficulty Stated Complaint: OXYGEN LEVEL PROBLEM Time Seen by Provider: 06/25/18 23:18 Primary Care Provider: KEVON WARD MD [Primary Care Provider] - Follow up as needed Notes: 62-year-old male with chief complaint of 2 separate episodes when he drank liquid and then laid back, started choking, and then appeared to be passing out, he states that he woke up and found his hitting in his chest to wake him up. He did this yesterday and today. He does report vague tightness in his chest intermittently. He states he has not been eating or drinking much, he ate once today. Past medical history of hypertension and diabetes, also has a history of CHF. TRAVEL OUTSIDE OF THE [place] IN LAST 30 DAYS: No - Related Data Allergies/Adverse Reactions: No Known Allergies Allergy (Verified 02/17/17 11:19) Past Medical History - Past Medical History Cardiac Medical History: Reports: Hx Congestive Heart Failure, Hx Hypertension Denies: Hx Heart Attack Pulmonary Medical History: Reports: Hx COPD Endocrine Medical History: Reports: Hx Diabetes Mellitus Type 2 Renal/ Medical History: Denies: Hx Peritoneal Dialysis Past Surgical History: Reports: Hx Orthopedic Surgery - right knee meniscus repair 1974 Physical Exam - Respiratory Respiratory status: No respiratory distress Breath sounds: Normal. No: Decreased air movement - Cardiovascular Rhythm: Regular. No: Tachycardia Heart sounds: Normal auscultation, S1 appreciated, S2 appreciated Doctor's Discharge - Discharge Referrals: KEVON WARD MD [Primary Care Provider] - Follow up as needed
[2018-06-25 23:49] LABS: HEMATOCRIT 40.3 % (37.9-51.0); HEMOGLOBIN 13.8 g/dL (13.5-17.0); MEAN CORPUSCULAR VOLUME 92 fl (80-97)
[2018-06-25 23:50] LABS: ABSOLUTE BASOPHILS # (AUTO) 0.1 10^3/uL (0.0-0.2); ABSOLUTE EOSINOPHILS # (AUTO) 0.3 10^3/uL (0.0-0.6); ABSOLUTE LYMPHOCYTES (AUTO) 1.5 10^3/uL (0.5-4.7); ABSOLUTE MONOCYTES (AUTO) 0.9 10^3/uL (0.1-1.4); ABSOLUTE NEUT (AUTO) 7.2 10^3/uL (1.7-8.2); BASOPHILS % (AUTO) 0.8 % (0-2); EOSINOPHILS % (AUTO) 2.5 % (0-6); LYMPHOCYTES % (AUTO) 15.1 % (13-45); MEAN CORPUSCULAR HEMOGLOBIN 31.5 pg (27.0-33.4); MEAN CORPUSCULAR HGB CONC 34.4 g/dL (32.0-36.0); MONOCYTES % (AUTO) 9.3 % (3-13); PLATELET COUNT 197 10^3/uL (150-450); RED CELL DISTRIBUTION WIDTH 15.1 % (11.5-14.0); SEGMENTED NEUTROPHILS % (AUTO) 72.3 % (42-78); TOTAL CELLS COUNTED % (AUTO) 100 %
[2018-06-26 00:05] LABS: BLOOD UREA NITROGEN 11 mg/dL (7-20); CHLORIDE 92 mmol/L (98-107); GLUCOSE 136 mg/dL (75-110); SODIUM 129.8 mmol/L (137-145)
[2018-06-26 00:07] LABS: ANION GAP 13 (5-19); CARBON DIOXIDE 25 mmol/L (22-30)
[2018-06-26 00:11] LABS: APPEARANCE,URINE CLEAR; BILIRUBIN,URINE NEGATIVE (NEGATIVE); COLOR,URINE STRAW; GLUCOSE, URINE NEGATIVE (NEGATIVE); KETONES,URINE NEGATIVE (NEGATIVE); LEUKOCYTE ESTERASE,URINE NEGATIVE (NEGATIVE); NITRITE,URINE NEGATIVE (NEGATIVE); PROTEIN,URINE NEGATIVE (NEGATIVE); URINE SPECIFIC GRAVITY 1.004; UROBILINOGEN,URINE NEGATIVE mg/dL (<2.0)
--- NOTE | 2018-06-26 02:43 | ER Document Report ---
ED General - General Chief Complaint: Breathing Difficulty Stated Complaint: OXYGEN LEVEL PROBLEM Time Seen by Provider: 06/25/18 23:18 Primary Care Provider: KEVON WARD MD [NO LOCAL MD] - Follow up in 3-5 days Notes: Patient is a pleasant 62-year-old male who is a smoker presents with recurrent cough. says that he has had 2 episodes in last few days where he had a large amount of coughing and after coughing he passed out. This happened a few days ago and it happened again tonight. The first time this happened after he drank some water and start coughing and gagging and then passed out. Tonight he was coughing and passed abdominal coughing. He was prescribed albuterol inhaler but has not been using it. He does still smoke. He fever 2 days ago. No fevers in last 24 hours. No other complaints at this time. TRAVEL OUTSIDE OF THE [place] IN LAST 30 DAYS: No - Related Data Allergies/Adverse Reactions: No Known Allergies Allergy (Verified 02/17/17 11:19) Past Medical History - Social History Smoking Status: Current Every Day Smoker Frequency of alcohol use: None Drug Abuse: None Family History: COPD, DM, Hypertension. denies: CAD, Malignancy, Thyroid Disfunction - Past Medical History Cardiac Medical History: Reports: Hx Congestive Heart Failure, Hx Hypertension Denies: Hx Heart Attack Pulmonary Medical History: Reports: Hx COPD Endocrine Medical History: Reports: Hx Diabetes Mellitus Type 2 Renal/ Medical History: Denies: Hx Peritoneal Dialysis Past Surgical History: Reports: Hx Orthopedic Surgery - right knee meniscus repair 1973 Review of Systems - Review of Systems Notes: My Normal Review Basic REVIEW OF SYSTEMS: CONSTITUTIONAL : Denies fever, chills, or sweats. Denies recent illness. EENT: Denies eye, ear, throat, or mouth pain or symptoms. Denies nasal or sinus congestion. CARDIOVASCULAR: Denies chest pain. RESPIRATORY: Cough GENITOURINARY: Denies difficulty urinating, painful urination, burning, frequency, or blood in urine. MUSCULOSKELETAL: Denies neck or back pain or joint pain or swelling. SKIN: Denies rash or skin lesions. HEMATOLOGIC : Denies easy bruising or bleeding. NEUROLOGICAL: Couple episodes after coughing. Denies headache. Denies weakness or paralysis or loss of use of either side. Denies problems with gait or speech. Denies sensory or motor loss. ALL OTHER SYSTEMS REVIEWED AND NEGATIVE. Physical Exam - Notes Notes: General Appearance: Well nourished, alert, cooperative, no acute distress, no obvious discomfort. Well appearing. Vitals: reviewed, See vital signs table. Head: no swelling or tenderness to the head Eyes: PERRL, EOMI, Conjuctiva clear Mouth: No decreased moisture Throat: No tonsillar inflammation, No airway obstruction, No lymphadenopathy Neck: Supple, no neck tenderness, No thyromegaly Lungs: No wheezing, No rales, No rhonci, No accessory muscle use, good air exchange bilaterally. Heart: Normal rate, Regular rythm, No murmur, no rub Abdomen: Normal BS, soft, No rigidity, No abdominal tenderness, No guarding, no rebound, no abdominal masses, no organomegaly Extremities: strength 5/5 in all extremities, good pulses in all extremities, no swelling or tenderness in the extremities, no edema. Skin: warm, dry, appropriate color, no rash Neuro: speech clear, oriented x 3, normal affect, responds appropriately to questions. Course - Re-evaluation Re-evalutation: 06/26/18 06:22 I suspect Mr. De Leon passed out due to coughing. Both episodes occurred after long fits of coughing. Is consistent posttussive emesis. I talked at length about quitting smoking. I will place him on Tessalon Perles. Chest x-ray showed no evidence of pneumonia. He does have some hyponatremia but do not suspect this is causing his syncopal episode. He denies any chest pain during these episodes. He said on exam he has chest pain as if he coughs really hard. At this time I feel the patient safe to be discharged home. I informed him and his to return to ER immediately if he has recurrent passing out episodes, difficulty breathing, fevers, or if he appears unwell. Patient and agree with plan and patient will be discharged home. Dictation of this chart was performed using voice recognition software; therefore, there may be some unintended grammatical errors. - Laboratory Result Diagrams: 06/25/18 23:25 06/25/18 23:25 Laboratory results interpreted by me: 06/25/18 06/25/18 06/25/18 23:25 23:25 23:25 RDW 15.1 H Sodium 129.8 L Chloride 92 L Glucose 136 H Urine Blood SMALL H - EKG Interpretation by Me Additional EKG results interpreted by me: 06/26/18 02:43 EKG is reviewed and interpreted by me. EKG shows sinus rhythm with a rate of [address] segment elevation or depression. Patient does have some T wave inversions in the lateral precordial leads. This is unchanged comparison to her previous EKG from December 14, 2016. Discharge - Discharge Clinical Impression: Post-tussive syncope Condition: Good Disposition: HOME, SELF-CARE Additional Instructions: I suspect your passing out episodes are related to your coughing episodes. Please stop smoking. Please use the inhaler given to you by your doctor. Please make sure you immediately sit or lay down if you start to have a coughing episode so you do not fall and hurt your self. Please return to the ER if you have chest pain, palpitations, fevers, or feel that you are worsening in any way. Prescriptions: Benzonatate [Tessalon Perles 100 mg Capsule] 100 mg PO ASDIR PRN #40 capsule PRN Reason: Referrals: KEVON WARD MD [NO LOCAL MD] - Follow up in 3-5 days
[2018-06-26] MEDS ORDERED: BENZONATATE 100 MG CAPSULE PO ONE (02:54)
--- NOTE | 2018-06-26 03:00 | RADIOLOGY REPORT (SQ) ---
EXAM DESCRIPTION: XR CHEST 1 VIEW COMPLETED DATE/TME: 06/25/2018 23:23 CLINICAL HISTORY: 62 years, Male, chest tightness COMPARISON: None NUMBER OF VIEWS: One TECHNIQUE: AP view of the chest LIMITATIONS: None. FINDINGS: The lungs are clear. There are no pleural abnormalities. Cardiac silhouette and pulmonary vessels are normal. IMPRESSION: No acute cardiopulmonary disease. copyright 2010 [employer]- All Rights Reserved
[2018-06-26 07:58] VITALS: BP 138/105
--- NOTE | 2018-06-26 20:04 | EKG REPORT ---
SEVERITY:- ABNORMAL ECG - SINUS RHYTHM ABNORMAL T, CONSIDER ISCHEMIA, LATERAL LEADS : Confirmed by: Melody Pacheco 26-Jun-2018 20:04:13
== END 2018-06-26 04:10 | disposition home or self-care (01) ==
LOC: ER 21:26
DX: R55 Syncope and collapse (principal); J44.9 Chronic obstructive pulmonary disease, unspecified; R05 Cough; E87.1 Hypo-osmolality and hyponatremia; F17.200 Nicotine dependence, unspecified, uncomplicated; I10 Essential (primary) hypertension; E10.9 Type 1 diabetes mellitus without complications
CPT/HCPCS: 36415; 71045; 80048; 81001; 84484; 85025; 93005; 93010; 99284

== ENCOUNTER 2019-06-23 12:11 | Observation (INO) | payer OTHER ==
--- NOTE | 2019-06-23 12:57 | ER Document Report ---
ED General - General Chief Complaint: Syncope Stated Complaint: POSSIBLE SYNCOPE [facility] Care Provider: [facility] [Primary Care Provider] - Follow up in 3-5 days Notes: 63-year-old male history of coronary artery disease and CHF who is seen at the [facility], presents with syncope. He was in the office sitting up having had all of his morning meds but no breakfast, got sweaty and pale lost consciousness briefly while sitting. No myoclonic jerking quick return to baseline and now feels well. No chest pain shortness of breath worsening leg swellingpostop from a knee surgery about a week and a half ago. History of multiple episodes of syncope but is not a clear diagnosis. No history of ICD placement. He denies headache or unilateral neuro symptoms and his family at the bedside corroborates the above history. TRAVEL OUTSIDE OF THE [place] IN LAST 30 DAYS: No - Related Data Allergies/Adverse Reactions: No Known Allergies Allergy (Verified 02/17/17 11:19) Past Medical History - Social History Smoking Status: Unknown if Ever Smoked Family History: COPD, DM, Hypertension. denies: CAD, Malignancy, Thyroid Disfunction Patient has suicidal ideation: No Patient has homicidal ideation: No - Past Medical History Cardiac Medical History: Reports: Hx Congestive Heart Failure, Hx Hypertension Denies: Hx Heart Attack Pulmonary Medical History: Reports: Hx COPD Endocrine Medical History: Reports: Hx Diabetes Mellitus Type 2 Renal/ Medical History: Denies: Hx Peritoneal Dialysis Past Surgical History: Reports: Hx Orthopedic Surgery - right knee meniscus repair 1973 Review of Systems - Review of Systems Notes: REVIEW OF SYSTEMS GEN: Denies fever, chills, weight loss. Transient weakness. ENT: Denies sore throat, nasal discharge, ear pain EYES: Denies blurry vision, eye pain, discharge CV: Denies chest pain, palpitations, edema RESP: Denies cough, shortness of breath, wheezing GI: Denies abdominal pain, nausea, vomiting, diarrhea MSK: Denies joint pain/swelling, edema, SKIN: Denies rash, skin lesions LYMPH: Denies swollen glands/lymph nodes NEURO: Also consciousness. Denies headache, focal weakness or numbness, dizziness PSYCH: Denies depression, suicidal or homicidal ideation PHYSICAL EXAMINATION General: No acute distress, well-nourished Head: Atraumatic, normocephalic ENT: Mouth normal, oropharynx moist, no exudates or tonsillar enlargement Eyes: Conjunctiva normal, pupils equal, lids normal Neck: No JVD, supple, no guarding CVS: Normal rate, regular rhythm, no murmurs Resp: No resp distress, equal and normal breath sounds bilaterally GI: Nondistended, soft, no tenderness to palpation, no rebound or guarding Ext: No deformities, no edema, normal range of motion in upper and lower ext Back: No CVA or midline TTP Skin: No rash, warm Lymphatic: No lymphadeopathy noted Neuro: Awake, alert. Face symmetric. GCS 15. Physical Exam - Vital signs Vitals: Resp Pulse Ox 17 100 06/23/19 12:34 06/23/19 12:34 Course - Vital Signs Vital signs: Temp Pulse Resp BP Pulse Ox 17 126/75 H 99 06/23/19 13:02 06/23/19 13:02 06/23/19 13:02 - Laboratory Result Diagrams: 06/23/19 11:54 06/23/19 11:54 Discharge - Discharge Clinical Impression: Syncope Qualifiers: Syncope type: unspecified Qualified Code(s): R55 - Syncope and collapse Condition: Good Disposition: HOME, SELF-CARE Instructions: Syncopal Episode ([facility]) Referrals: [facility] [Primary Care Provider] - Follow up in 3-5 days
[2019-06-23 13:17] LABS: ABSOLUTE BASOPHILS # (AUTO) 0.1 10^3/uL (0.0-0.2); ABSOLUTE EOSINOPHILS # (AUTO) 0.2 10^3/uL (0.0-0.6); ABSOLUTE MONOCYTES (AUTO) 1.3 10^3/uL (0.1-1.4); ABSOLUTE NEUT (AUTO) 13.2 10^3/uL (1.7-8.2); BASOPHILS % (AUTO) 0.5 % (0-2); EOSINOPHILS % (AUTO) 1.4 % (0-6); HEMATOCRIT 29.9 % (37.9-51.0); HEMOGLOBIN 9.9 g/dL (13.5-17.0); LYMPHOCYTES % (AUTO) 6.6 % (13-45); MEAN CORPUSCULAR VOLUME 91 fl (80-97); MONOCYTES % (AUTO) 8.2 % (3-13); PLATELET COUNT 349 10^3/uL (150-450); RED BLOOD COUNT 3.29 10^6/uL (4.35-5.55); RED CELL DISTRIBUTION WIDTH 13.6 % (11.5-14.0); SEGMENTED NEUTROPHILS % (AUTO) 83.3 % (42-78); TOTAL CELLS COUNTED % (AUTO) 100 %; WHITE BLOOD COUNT 15.8 10^3/uL (4.0-10.5)
[2019-06-23 13:26] LABS: ANION GAP 12 (5-19); BLOOD UREA NITROGEN 23 mg/dL (7-20); CALCIUM 9.4 mg/dL (8.4-10.2); CARBON DIOXIDE 22 mmol/L (22-30); CHLORIDE 99 mmol/L (98-107); GLUCOSE 210 mg/dL (75-110); POTASSIUM 5.4 mmol/L (3.6-5.0)
[2019-06-23] MEDS ORDERED: NORMAL SALINE 1000 ML 1,000 ML IV ONE (13:37)
[2019-06-23] MEDS ORDERED: ACETAMINOPHEN 325 MG TABLET PO PRN (14:11)
[2019-06-23] MEDS ORDERED: ONDANSETRON HCL INJ/PF 4 MG/2 ML SDV IV PRN (14:11)
[2019-06-23] MEDS ORDERED: ONDANSETRON 4 MG TAB.RAPDIS PO PRN (14:11)
[2019-06-23] MEDS ORDERED: OXYCODONE-ACETAMINOPHEN 5-325 MG TABLET PO PRN (14:11)
--- NOTE | 2019-06-23 14:48 | PDOC H&P ---
History of Present Illness Admission Date/PCP: 06/23/19 13:46 [facility] History of Present Illness: CHRISTIANO DOSHI is a 63 year old male who had some sort of syncope episode this morning around 1120 at his doctor's office. States he woke up this morning and took his regular medication which included medicine for blood pressure medicine for diabetes as well as pain medicine. States he did need his regular breakfast but he did drink 1 Ensure. Patient saw the physician and then was out in the waiting room waiting to go home when he felt weak lightheaded, according to family he became diaphoretic and for about 3 minutes was mumbling, unable to speak or unable to follow commands. Patient and family states that there is no, patient denies any chest pain at the time or shortness of breath. Patient was "lightheaded". Patient states that this same sort of scenario happened about a year ago when they were unable to diagnose it at that time. Patient had a total right knee replacement approximately 1 week ago the [facility]. cording to patient and according to review of his medications I see no medicines to prevent DVTs. Patient states that this time he feels fine with no complaint s. Patient and family tell me that they checked his blood sugar after this happened and it was 240. She states that he normally runs about 150. At this time I am asking for chest x-ray CT head scan d-dimer. Put patient in the hospital under observation status. Also requesting 2D echo His BUN is 23 and actually 2 years ago his BUN got up to 31. Most recently 1 year ago it was 11 Creatinine today was 1.62 years ago it was 1.35, year ago it was 1.06 Patient may be a little dehydrated, may have had a PE as he is recovering from a total knee replacement. Patient may have had some sort of cardiac event. She does have a living will but it has not been executed yet and it has different variables concerning life support. Therefore I told him I would make him a full code. Patient does not appear to be in any distress at this time. He is awake and alert and talking in full sentences. Past Medical History Cardiac Medical History: Reports: Congestive Heart Failure, Hypertension Denies: Myocardial Infarction Pulmonary Medical History: Reports: Chronic Obstructive Pulmonary Disease (COPD) Endocrine Medical History: Reports: Diabetes Mellitus Type 2 Musculoskeltal Medical History: Reports: Other - Total knee replacement Past Surgical History Past Surgical History: Reports: Orthopedic Surgery - right knee meniscus repair 1974 Social History Smoking Status: Unknown if Ever Smoked Frequency of Alcohol Use: Social Hx Recreational Drug Use: No Drugs: None Hx Prescription Drug Abuse: No - Advance Directive Resuscitation Status: Full Code Family History Family History: COPD, DM, Hypertension. denies: CAD, Malignancy, Thyroid Disfunction Parental Family History Reviewed: No Children Family History Reviewed: No Sibling(s) Family History Reviewed.: No Medication/Allergy Allergies/Adverse Reactions: No Known Allergies Allergy (Verified 02/17/17 11:19) Review of Systems Constitutional: ABSENT: chills, fever(s), headache(s), weight gain, weight loss Respiratory: ABSENT: cough, hemoptysis Gastrointestinal: ABSENT: abdominal pain, constipation, diarrhea, hematemesis, hematochezia, nausea, vomiting Neurological: ABSENT: abnormal gait, abnormal speech, confusion, dizziness, focal weakness, syncope Psychiatric: ABSENT: anxiety, depression, homidical ideation, suicidal ideation Physical Exam Vital Signs: Temp Pulse Resp BP Pulse Ox 17 126/75 H 99 06/23/19 13:02 06/23/19 13:02 06/23/19 13:02 General appearance: PRESENT: no acute distress, other - 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 ABSENT: rales, rhonchi, wheezes Cardiovascular exam: PRESENT: RRR. ABSENT: diastolic murmur, rubs, systolic murmur Neurological exam: PRESENT: alert, awake, oriented to person, oriented to place, oriented to time, oriented to situation, CN II-XII grossly intact, other - Left eyelid droop, chronic. ABSENT: motor sensory deficit Psychiatric exam: PRESENT: appropriate affect, normal mood. ABSENT: homicidal ideation, suicidal ideation Results Laboratory Results: 06/23/19 11:54 06/23/19 11:54 06/23/19 06/23/19 11:54 11:54 WBC 15.8 H RBC 3.29 L Hgb 9.9 L Hct 29.9 L MCV 91 MCH 30.0 MCHC 33.0 RDW 13.6 Plt Count 349 Seg Neutrophils % 83.3 H Sodium 132.7 L Potassium 5.4 H Chloride 99 Carbon Dioxide 22 Anion Gap 12 BUN 23 H Creatinine 1.60 H Est GFR ( Amer) 53 L Glucose 210 H Calcium 9.4 06/23/19 11:54 Troponin I 0.017 Assessment and Plan - Diagnosis (1) History of total right knee replacement Is this a current diagnosis for this admission?: Yes (2) Syncope Qualifiers: Syncope type: unspecified Qualified Code(s): R55 - Syncope and collapse Is this a current diagnosis for this admission?: Yes (3) Max palsy Is this a current diagnosis for this admission?: Yes (4) Hypertension Is this a current diagnosis for this admission?: Yes (5) Diabetes Is this a current diagnosis for this admission?: Yes - Plan Summary Summary: Patient will be admitted for complete syncope work-up. The meantime we will continue IV fluids and hydrate. Patient being put in under observation status - Time Time Spent with patient: 35 or more minutes
--- NOTE | 2019-06-23 15:01 | RADIOLOGY REPORT (SQ) ---
EXAM DESCRIPTION: CHEST 2 VIEWS COMPLETED DATE/TIME: 06/23/2019 2:42 pm REASON FOR STUDY: Syncope COMPARISON: 06/26/2018 AP CHEST EXAM PARAMETERS: NUMBER OF VIEWS: two views TECHNIQUE: Digital Frontal and Lateral radiographic views of the chest acquired. RADIATION DOSE: NA LIMITATIONS: none FINDINGS: LUNGS AND PLEURA: No opacities, masses or pneumothorax. No pleural effusion. MEDIASTINUM AND HILAR STRUCTURES: No masses or contour abnormalities. HEART AND VASCULAR STRUCTURES: Heart normal size. No evidence for failure. BONES: Old left posterior rib fractures HARDWARE: None in the chest. OTHER: No other significant finding. IMPRESSION: NO ACUTE RADIOGRAPHIC FINDING IN THE CHEST. TECHNICAL DOCUMENTATION: JOB ID: [id number] [employer]- All Rights Reserved Reading location - IP/workstation name: [email or web address]
--- NOTE | 2019-06-23 15:23 | RADIOLOGY REPORT (SQ) ---
EXAM DESCRIPTION: CT HEAD WITHOUT COMPLETED DATE/TIME: 06/23/2019 2:45 pm REASON FOR STUDY: syncope COMPARISON: None. TECHNIQUE: Axial images acquired through the brain without intravenous contrast. Images reviewed wi th bone, brain and subdural windows. Additional sagittal and coronal reconstructions were generated. Images stored on PACS. All CT scanners at this facility use dose modulation, iterative reconstruction, and/or weight based d osing when appropriate to reduce radiation dose to as low as reasonably achievable (ALARA). [facility]: Dose Right [facility]: CareDose [facility]: Dose Right [facility]: Teradose 4D [facility]: MindSnacks RADIATION DOSE: CT Rad equipment meets quality standard of care and radiation dose reduction techniq ues were employed. CTDIvol: 53.2 mGy. DLP: 1044 mGy-cm. mGy. LIMITATIONS: None. FINDINGS: VENTRICLES: Normal size and contour. CEREBRUM: No masses. No hemorrhage. No midline shift. No evidence for acute infarction. Extensive low attenuation in the bifrontal and biparietal hemispheric white matter likely from chronic small ve ssel ischemic change. CEREBELLUM: No masses. No hemorrhage. No alteration of density. No evidence for acute infarction. EXTRAAXIAL SPACES: No fluid collections. No masses. ORBITS AND GLOBE: No intra- or extraconal masses. Normal contour of globe without masses. CALVARIUM: No fracture. PARANASAL SINUSES: No fluid or mucosal thickening. SOFT TISSUES: No mass or hematoma. OTHER: No other significant finding. IMPRESSION: No acute findings Diffuse chronic white matter disease EVIDENCE OF ACUTE STROKE: NO. COMMENT: Quality ID # [id number]: Final reports with documentation of one or more dose reduction techniques (e.g., Automated exposure control, adjustment of the mA and/or kV according to patient size, use of iterative reconstruction technique) TECHNICAL DOCUMENTATION: JOB ID: [id number] [employer]- All Rights Reserved Reading location - IP/workstation name: [email or web address]
[2019-06-23 15:29] LABS: INTERNATIONAL RATION (INR) 1.08
[2019-06-23 15:44] LABS: CREATINE KINASE MB 0.37 ng/mL (<4.55); TROPONIN I 0.013 ng/mL
[2019-06-23 16:19] LABS: D-DIMER 3.74 ug/mL (0.00-0.50)
--- NOTE | 2019-06-23 19:35 | EKG REPORT ---
SEVERITY:- ABNORMAL ECG - SINUS RHYTHM NONSPECIFIC T ABNORMALITIES, LATERAL LEADS : Confirmed by: Sana Do MD 23-Jun-2019 19:35:09
[2019-06-23 20:48] LABS: CREATINE KINASE MB 0.39 ng/mL (<4.55); TROPONIN I 0.012 ng/mL
--- NOTE | 2019-06-23 21:45 | XCELERA REPORT ---
[address] [address] Transthoracic Echocardiogram Report Name: CHRISTIANO DOSHI Age: 63 yrs Gender: Male : 1955 Patient Status: [facility] Date: 06/23/2019 05:50 PM Height: 68 in Weight: 197 lb BSA: 2.0 m2 Procedure: A two-dimensional transthoracic echocardiogram with color flow and Doppler was performed. Study Quality: Fair. Reason For Study: Syncope History: Syncope. Ordering Physician: KARLI BORJAS Performed By: Aida Bishop Interpretation Summary The left ventricle is normal in size. There is normal left ventricular wall thickness. LV EF is greater than 60% Left ventricular systolic function is normal. Doppler measurements suggest impaired left ventricular relaxation, which is associated with grade I/IV or mild diastolic dysfunction The left ventricular wall motion is normal. There is no thrombus. No ASD , VSD,or PFO seen. The right ventricle is normal in size and function. The right atrium is normal. The left atrial size is normal. There is no aortic valvular vegetation. There is no aortic valve stenosis There is no LVOT obstruction. No aortic regurgitation is present. There is no evidence of mitral valve prolapse. There is no vegetation seen on the mitral valve. There is no mitral valve stenosis. There is a trace amount of mitral regurgitation There is no tricuspid stenosis. There is a trace amount of tricuspid regurgitation There is mild pulmonary hypertension by echo RVSP is 29 to 34 mm of Hg , with RA man of 5 to 10. There is no pulmonic valvular stenosis. There is no pulmonic valvular regurgitation. The aortic root is normal size. The inferior vena cava appeared normal and decreased > 50% with respiration (RAP 5-10 mmHg) There is no pericardial effusion. MMode/2D Measurements & Calculations RVDd: 2.2 cm LVIDd: 4.9 cm FS: 29.3 % Ao root diam: 2.7 cm IVSd: 1.1 cm LVIDs: 3.5 cm EDV(Teich): Ao root area: LVPWd: 0.88 cm 111.9 ml 5.7 cm2 ESV(Teich): 49.1 mlLA dimension: 3.2 cm EF(Teich): 56.1 % LVLd ap4: 7.0 cm SV(MOD-sp4): EDV(MOD-sp4): 28.0 ml 47.0 ml LVLs ap4: 5.6 cm ESV(MOD-sp4): 19.0 ml EF(MOD-sp4): 59.6 % Doppler Measurements & Calculations MV E max yesenia: MV P1/2t max yesenia: Ao V2 max: LV V1 max P.1 cm/sec 95.6 cm/sec 118.4 cm/sec 3.7 mmHg MV A max yesenia: MV P1/2t: 59.8 msec Ao max P.6 mmHg LV V1 max: 87.4 cm/sec MVA(P1/2t): 3.7 cm2 96.3 cm/sec MV E/A: 0.79 MV dec slope: 468.1 cm/sec2 MV dec time: 0.24 sec PA V2 max: TR max yesenia: MV P1/2t-pr_phl: 83.4 cm/sec 243.0 cm/sec 59.8 msec PA max PG: TR max P.6 mmHg 2.8 mmHg Left Ventricle The left ventricle is normal in size. There is normal left ventricular wall thickness. LV EF is greater than 60%. Left ventricular systolic function is normal. Doppler measurements suggest impaired left ventricular relaxation, which is associated with grade I/IV or mild diastolic dysfunction. The left ventricular wall motion is normal. There is no thrombus. No ASD , VSD,or PFO seen. Right Ventricle The right ventricle is normal in size and function. Atria The right atrium is normal. The left atrial size is normal. Mitral Valve There is mild mitral annular calcification. There is no evidence of mitral valve prolapse. There is no vegetation seen on the mitral valve. There is no mitral valve stenosis. There is a trace amount of mitral regurgitation. Aortic Valve There is no aortic valvular vegetation. There is no aortic valve stenosis. There is no LVOT obstruction. No aortic regurgitation is present. Tricuspid Valve There is no tricuspid stenosis. There is a trace amount of tricuspid regurgitation. There is mild pulmonary hypertension by echo. RVSP is 29 to 34 mm of Hg , with RA man of 5 to 10. Pulmonic Valve There is no pulmonic valvular stenosis. There is no pulmonic valvular regurgitation. Great Vessels The aortic root is normal size. The inferior vena cava appeared normal and decreased > 50% with respiration (RAP 5-10 mmHg). Effusions There is no pericardial effusion. : KARLI BORJAS, Sana
[2019-06-23] MEDS: FAMOTIDINE 20 MG TABLET PO SCH (21:58)
[2019-06-23] MEDS: HEPARIN SOD (PORCINE) 5,000 UNIT/ML 1 ML VIAL SUBCUT SCH (21:58)
[2019-06-23 22:15] LABS: APPEARANCE,URINE CLEAR; BILIRUBIN,URINE NEGATIVE (NEGATIVE); COLOR,URINE YELLOW; GLUCOSE, URINE NEGATIVE (NEGATIVE); KETONES,URINE NEGATIVE (NEGATIVE); LEUKOCYTE ESTERASE,URINE NEGATIVE (NEGATIVE); NITRITE,URINE NEGATIVE (NEGATIVE); PROTEIN,URINE NEGATIVE (NEGATIVE); URINE SPECIFIC GRAVITY 1.024
--- NOTE | 2019-06-24 00:45 | RADIOLOGY REPORT (SQ) ---
CLINICAL HISTORY: syncope, DDimer elevated, post op COMPARISON: None. 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 MIPS reconstructions were generated. This exam was performed according to our departmental dose-optimization program, which includes automated exposure control, adjustment of the mA and/or kV according to patient size and/or use of iterative reconstruction technique. MIP images were generated. FINDINGS: Thoracic aorta is normal in course and caliber without aneurysm or dissection. Pulmonary arteries are adequately opacified without acute or chronic filling defects. The heart is mildly enlarged. There is no pericardial effusion. Intrathoracic lymph nodes are not enlarged. There is no pleural effusion, pleural thickening or pneumothorax. Central airways are patent. Lungs are clear with no consolidation, mass or interstitial lung disease. There are no acute abnormalities within the limited images of the upper abdomen. There are no acute osseous findings. No suspicious bony lesions. IMPRESSION: Cardiomegaly with no aortic dissection or aneurysm. No pulmonary embolus. No pneumonia.
[2019-06-24 02:51] LABS: ABSOLUTE BASOPHILS # (AUTO) 0.1 10^3/uL (0.0-0.2); ABSOLUTE EOSINOPHILS # (AUTO) 0.3 10^3/uL (0.0-0.6); ABSOLUTE LYMPHOCYTES (AUTO) 1.3 10^3/uL (0.5-4.7); ABSOLUTE MONOCYTES (AUTO) 1.1 10^3/uL (0.1-1.4); ABSOLUTE NEUT (AUTO) 10.1 10^3/uL (1.7-8.2); EOSINOPHILS % (AUTO) 2.7 % (0-6); HEMATOCRIT 27.3 % (37.9-51.0); HEMOGLOBIN 9.1 g/dL (13.5-17.0); LYMPHOCYTES % (AUTO) 9.9 % (13-45); MEAN CORPUSCULAR HEMOGLOBIN 29.9 pg (27.0-33.4); MEAN CORPUSCULAR HGB CONC 33.4 g/dL (32.0-36.0); MEAN CORPUSCULAR VOLUME 89 fl (80-97); MONOCYTES % (AUTO) 8.8 % (3-13); PLATELET COUNT 330 10^3/uL (150-450); RED BLOOD COUNT 3.06 10^6/uL (4.35-5.55); SEGMENTED NEUTROPHILS % (AUTO) 77.6 % (42-78); TOTAL CELLS COUNTED % (AUTO) 100 %
[2019-06-24 03:19] LABS: ANION GAP 12 (5-19); BLOOD UREA NITROGEN 24 mg/dL (7-20); CALCIUM 9.2 mg/dL (8.4-10.2); CARBON DIOXIDE 22 mmol/L (22-30); CHLORIDE 99 mmol/L (98-107); GLUCOSE 133 mg/dL (75-110); POTASSIUM 4.9 mmol/L (3.6-5.0)
[2019-06-24 03:30] LABS: CREATINE KINASE MB 0.52 ng/mL (<4.55); TROPONIN I 0.015 ng/mL
[2019-06-24] MEDS: HEPARIN SOD (PORCINE) 5,000 UNIT/ML 1 ML VIAL SUBCUT SCH (06:24)
[2019-06-24 09:06] VITALS: BP 174/76
[2019-06-24] MEDS ORDERED: DOCUSATE SODIUM 100 MG CAPSULE PO SCH (10:00)
[2019-06-24] MEDS: FAMOTIDINE 20 MG TABLET PO SCH (10:42)
--- NOTE | 2019-06-24 14:50 | EKG REPORT ---
SEVERITY:- ABNORMAL ECG - SINUS RHYTHM VENTRICULAR PREMATURE COMPLEX NONSPECIFIC T ABNORMALITIES, LATERAL LEADS : Confirmed by: Sana Do MD 24-Jun-2019 14:49:18
--- NOTE | 2019-06-24 15:04 | PDOC DISCHARGE SUMMARY ---
Impression - Admit/DC Date/PCP Admission Date/Primary Care Provider: 06/23/19 13:[facility] Discharge Date: 06/24/19 - Discharge Diagnosis (1) History of total right knee replacement Is this a current diagnosis for this admission?: Yes (2) Syncope Is this a current diagnosis for this admission?: Yes (3) Max palsy Is this a current diagnosis for this admission?: Yes (4) Hypertension Is this a current diagnosis for this admission?: Yes (5) Diabetes Is this a current diagnosis for this admission?: Yes - Assessment Summary: Patient will be admitted for complete syncope work-up. The meantime we will continue IV fluids and hydrate. Patient being put in under observation status June 24, 2019 Was discharged home today in good condition. Showed ejection fracture greater than 60% with no valvular disease. CT head scan showed no acute infarct CTA of the chest showed no pulmonary embolism. D-dimer was falsely positive Since labs have remained stable, renal functions have improved with creatinine going from 1.60-1.15 Sh is normal 1.96 troponins were basically normal Glucose was 133 at the time of discharge Had no spells no episodes no complaints while in the hospital Told to follow-up with the [facility] in the next 5 to 7 days patient was also told follow-up with orthopedic surgeon concerning his right knee next week New prescriptions are written patient and his family seems satisfied with the work-up. This is #1 syncope #2 possible medication effect, the patient took his medicines on an empty stomach and then did not eat for 3 hours, #3 status post right total knee, for his diabetes - Additional Information Resuscitation Status: Full Code Discharge Diet: Diabetic Discharge Activity: Activity As Tolerated Referrals: [facility]] - (06/24 @ 3744 SPOKE TO [facility]ERSONNEL AND THEY STATE PCP DOES NOT NEED TO SEE PATIENT FOR FOLLOW UP. PATIENT HAS A FOLLOW UP APPT. SCHEDULED IN 3 MONTHS PATIENT IS AWARE ALREADY.) Home Medications: Amlodipine Besylate [Norvasc 10 mg Tablet] 10 mg PO DAILY 06/23/19 Aspirin [Ecotrin 81 mg EC Tablet] 81 mg PO DAILY 06/23/19 Atorvastatin Calcium [Lipitor 20 mg Tablet] 20 mg PO QHS 06/23/19 Carvedilol [Coreg 12.5 mg Tablet] 25 mg PO Q12 06/23/19 Ergocalciferol (Vitamin D2) [Drisdol 50,000 unit (1.25MG) Capsule] 50,000 unit PO KHAN@1000 06/23/19 Ferrous Sulfate [Feosol 325 mg Tablet] 325 mg PO DAILY 06/23/19 Isosorbide Mononitrate [Imdur 60 mg Tablet.er] 60 mg PO DAILY 06/23/19 Lisinopril [Zestril] 40 mg PO DAILY 06/23/19 Meloxicam [Mobic] 15 mg PO DAILY 06/23/19 Metformin HCl [Glucophage 500 mg Tablet] 1,000 mg PO QPM 06/23/19 Metformin HCl [Glucophage 500 mg Tablet] 500 mg PO QAM 06/23/19 Oxycodone HCl [Oxy-Ir 5 mg Tablet] 5 mg PO Q4 06/23/19 Pantoprazole Sodium [Protonix [address] Tablet] 40 mg PO DAILY 06/23/19 Sennosides/Docusate Sodium [Senna-S Tablet] 1 tab PO DAILY 06/23/19 History of Present Illiness History of Present Illness: CHRISTIANO DOSHI is a 63 year old male who had some sort of syncope episode this morning around 1120 at his doctor's office. States he woke up this morning and took his regular medication which included medicine for blood pressure medicine for diabetes as well as pain medicine. States he did need his regular breakfast but he did drink 1 Ensure. Patient saw the physician and then was out in the waiting room waiting to go home when he felt weak lightheaded, according to family he became diaphoretic and for about 3 minutes was mumbling, unable to speak or unable to follow commands. Patient and family states that there is no, patient denies any chest pain at the time or shortness of breath. Patient was "lightheaded". Patient states that this same sort of scenario happened about a year ago when they were unable to diagnose it at that time. [facility] c[facility] to patient and according to review of his medications I see no medicines to prevent DVTs. Patient states that this time he feels fine with no complaints. Patient and family tell me that they checked his blood sugar after this happened and it was 240. She states that he normally runs about 150. At this time I am asking for chest x-ray CT head scan d-dimer. Put patient in the hospital under observation status. Also requesting 2D echo His BUN is 23 and actually 2 years ago his BUN got up to 31. Most recently 1 year ago it was 11 Creatinine today was 1.62 years ago it was 1.35, year ago it was 1.06 Patient may be a little dehydrated, may have had a PE as he is recovering from a total knee replacement. Patient may have had some sort of cardiac event. She does have a living will but it has not been executed yet and it has different variables concerning life support. Therefore I told him I would make him a full code. Patient does not appear to be in any distress at this time. He is awake and alert and talking in full sentences. Physical Exam Vital Signs: Temp Pulse Resp BP Pulse Ox 97.1 F 83 18 174/76 H 100 06/24/19 10:46 06/24/19 10:46 06/24/19 10:46 06/24/19 08:59 06/24/19 10:46 Intake & Output 06/23/19 06/24/19 06/25/19 06:59 06:59 06:59 Intake Total 1450 Output Total 400 Balance 1050 Weight 81.6 kg Results Laboratory Results: WBC 13.0 10^3/uL (4.0-10.5) H 06/24/19 02:44 RBC 3.06 10^6/uL (4.35-5.55) L 06/24/19 02:44 Hgb 9.1 g/dL (13.5-17.0) L 06/24/19 02:44 Hct 27.3 % (37.9-51.0) L 06/24/19 02:44 MCV 89 fl (80-97) 06/24/19 02:44 MCH 29.9 pg (27.0-33.4) 06/24/19 02:44 MCHC 33.4 g/dL (32.0-36.0) 06/24/19 02:44 RDW 14.0 % (11.5-14.0) 06/24/19 02:44 Plt Count 330 10^3/uL (150-450) 06/24/19 02:44 Lymph % (Auto) 9.9 % (13-45) L 06/24/19 02:44 Luce % (Auto) 8.8 % (3-13) 06/24/19 02:44 Eos % (Auto) 2.7 % (0-6) 06/24/19 02:44 Baso % (Auto) 1.0 % (0-2) 06/24/19 02:44 Absolute Neuts (auto) 10.1 10^3/uL (1.7-8.2) H 06/24/19 02:44 Absolute Lymphs (auto) 1.3 10^3/uL (0.5-4.7) 06/24/19 02:44 Absolute Monos (auto) 1.1 10^3/uL (0.1-1.4) 06/24/19 02:44 Absolute Eos (auto) 0.3 10^3/uL (0.0-0.6) 06/24/19 02:44 Absolute Basos (auto) 0.1 10^3/uL (0.0-0.2) 06/24/19 02:44 Seg Neutrophils % 77.6 % (42-78) 06/24/19 02:44 PT 14.0 SEC (11.4-15.4) 06/23/19 15:04 INR 1.08 06/23/19 15:04 APTT 36.8 SEC (23.5-35.8) H 06/24/19 02:44 D-Dimer 3.74 ug/mL (0.00-0.50) H 06/23/19 15:04 Sodium 132.9 mmol/L (137-145) L 06/24/19 02:44 Potassium 4.9 mmol/L (3.6-5.0) 06/24/19 02:44 Chloride 99 mmol/L (98-107) 06/24/19 02:44 Carbon Dioxide 22 mmol/L (22-30) 06/24/19 02:44 Anion Gap 12 (5-19) 06/24/19 02:44 BUN 24 mg/dL (7-20) H 06/24/19 02:44 Creatinine 1.15 mg/dL (0.52-1.25) 06/24/19 02:44 Est GFR ( Amer) > 60 (>60) 06/24/19 02:44 Est GFR (MDRD) Non-Af > 60 (>60) 06/24/19 02:44 Glucose 133 mg/dL (75-110) H 06/24/19 02:44 POC Glucose 132 mg/dL (70-110) H 06/24/19 08:25 Hemoglobin A1c % 7.1 % (4.7-6.0) H 06/23/19 15:04 Calcium 9.2 mg/dL (8.4-10.2) 06/24/19 02:44 Magnesium 1.7 mg/dL (1.6-2.3) 06/24/19 02:44 CK-MB (CK-2) 0.52 ng/mL (<4.55) 06/24/19 02:44 Troponin I 0.015 ng/mL 06/24/19 02:44 TSH 1.96 uIU/mL (0.47-4.68) 06/23/19 15:04 Urine Color YELLOW 06/23/19 21:40 Urine Appearance CLEAR 06/23/19 21:40 Urine pH 5.0 (5.0-9.0) 06/23/19 21:40 Ur Specific Effie 1.024 06/23/19 21:40 Urine Protein NEGATIVE mg/dL (NEGATIVE) 06/23/19 21:40 Urine Glucose (UA) NEGATIVE mg/dL (NEGATIVE) 06/23/19 21:40 Urine Ketones NEGATIVE mg/dL (NEGATIVE) 06/23/19 21:40 Urine Blood NEGATIVE (NEGATIVE) 06/23/19 21:40 Urine Nitrite NEGATIVE (NEGATIVE) 06/23/19 21:40 Urine Bilirubin NEGATIVE (NEGATIVE) 06/23/19 21:40 Urine Urobilinogen 4.0 mg/dL (<2.0) H 06/23/19 21:40 Ur Leukocyte Esterase NEGATIVE (NEGATIVE) 06/23/19 21:40 Urine WBC (Auto) 0 /HPF 06/23/19 21:40 Urine RBC (Auto) 0 /HPF 06/23/19 21:40 Squamous Epi Cells Auto <1 /HPF 06/23/19 21:40 Urine Mucus (Auto) RARE /LPF 06/23/19 21:40 Urine Ascorbic Acid NEGATIVE (NEGATIVE) 06/23/19 21:40 06/23/19 06/23/19 06/23/19 11:54 15:04 19:55 CK-MB (CK-2) 0.37 0.39 Troponin I 0.017 0.013 0.012 02/07/20 02:44 CK-MB (CK-2) 0.52 Troponin I 0.015 Impressions: Chest/Abdomen CTA 06/23/19 00:00 IMPRESSION: Cardiomegaly with no aortic dissection or aneurysm. No pulmonary embolus. No pneumonia. Chest X-Ray 06/23/19 14:18 IMPRESSION: NO ACUTE RADIOGRAPHIC FINDING IN THE CHEST. Head CT 06/23/19 14:19 IMPRESSION: No acute findings Diffuse chronic white matter disease EVIDENCE OF ACUTE STROKE: NO. Stroke Is this a Stroke Patient?: No Acute Heart Failure - Is this a Heart Failure Patient?: No
== END 2019-06-24 11:42 | disposition home or self-care (01) ==
LOC: ER 12:11 → EH 13:46 → 5 16:30
PROVIDERS: ADMIT Hospitalist; ATTEND Hospitalist
DX: R55 Syncope and collapse (principal); G51.0 Bell's palsy; E11.9 Type 2 diabetes mellitus without complications; I11.0 Hypertensive heart disease with heart failure; I50.9 Heart failure, unspecified; E87.1 Hypo-osmolality and hyponatremia; I25.10 Atherosclerotic heart disease of native coronary artery without angina pectoris; Z96.651 Presence of right artificial knee joint; Z79.899 Other long term (current) drug therapy; Z79.84 Long term (current) use of oral hypoglycemic drugs; Z82.49 Family history of ischemic heart disease and other diseases of the circulatory system
CPT/HCPCS: 93005 ×2; 99285; 96360; 36415 ×2; 82553 ×2; 82962 ×2; 83735; 84443; 85025 ×2; 85610; 85730; 80048 ×2; 81001; 84484 ×2; 83036; 85379; 93306; 71046; 70450; 71275; 93010 ×2; G0378 ×3; J1644 ×2; J7030